=== PATIENT | male | born 1955 | race Caucasian/White ===

== ENCOUNTER 2018-11-30 19:21 | Emergency (ER) | payer MEDICARE, OTHER ==
[~2018-11-30] VITALS: Ht 190.5 cm; Wt 153.8 kg
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
[2018-11-30] MEDS ORDERED: METOCLOPRAMIDE HCL 10 MG/2 ML VIAL IV ONE (20:00)
[2018-11-30] MEDS ORDERED: IV NS 0.9% 500 ML BAG IV ONE (20:00)
[2018-11-30] MEDS ORDERED: METOCLOPRAMIDE HCL 10 MG/2 ML VIAL ONE (20:00)
[2018-11-30] MEDS ORDERED: diphenhydrAMINE HCL 50 MG/ML VIAL ONE (20:00)
[2018-11-30] MEDS ORDERED: diphenhydrAMINE HCL 50 MG/ML VIAL IV ONE (20:00)
[2018-11-30 20:04] LABS: BASOPHILS % (AUTO) 0.3 % (0.0-2.0); EOSINOPHILS % (AUTO) 0.3 % (0.0-6.0); HEMATOCRIT 41 % (39-51); HEMOGLOBIN 13.4 g/dL (13.5-17.5); MEAN CORPUSCULAR HGB CONC 33 g/dl (31.0-36.0); MEAN CORPUSCULAR VOLUME 82 fL (80-96); MONOCYTES # (AUTO) 0.4 /CMM (0.1-1.30); MONOCYTES % (AUTO) 5.5 % (2.0-12.0); NEUTROPHILS # (AUTO) 5.5 /CMM (1.8-8.9); NEUTROPHILS % (AUTO) 79.9 % (43.0-81.0); PLATELET COUNT (AUTO) 158 /CMM (150-450); RED BLOOD CELL COUNT(AUTO) 5.05 MIL/uL (4.5-6.0); WHITE BLOOD COUNT (AUTO) 6.9 K/uL (4.3-11.0)
[2018-11-30 20:12] LABS: CALCIUM, SERUM 8.7 mg/dL (8.5-10.1); CARBON DIOXIDE 29 mmol/L (21-32); CHLORIDE 103 mmol/L (98-107); CREATININE 1.2 mg/dL (0.6-1.3); GLUCOSE 147 mg/dL (74-106); POTASSIUM 4.8 mmol/L (3.5-5.1); SODIUM SERUM 138 mmol/L (136-145); UREA NITROGEN, BLOOD 21 mg/dL (7-18)
[2018-11-30] MEDS ORDERED: HYDROMORPHONE 1 MG/1 ML DISP.SYRIN ONE (21:00)
[2018-11-30] MEDS ORDERED: HYDROMORPHONE 1 MG/1 ML DISP.SYRIN IV PRN (21:00)
[2018-11-30 22:10] VITALS: BP 138/91
== END 2018-11-30 22:10 | disposition left against medical advice (07) ==
LOC: ER 19:26 → TELE 20:47 → UNDOADMIN 20:47 → ER 22:10
DX: R55 Syncope and collapse (principal); R51 Headache; I10 Essential (primary) hypertension; E11.9 Type 2 diabetes mellitus without complications; F41.9 Anxiety disorder, unspecified
CPT/HCPCS: 36415; 70450; 71045; 80048; 84484; 85025; 87081; 93005; 96361; 96374; 96375; 99284; A4606; J1170; J1200; J2765; J7040

== ENCOUNTER 2023-04-23 13:05 | Emergency (ER) | payer MEDICARE, OTHER ==
[~2023-04-23] VITALS: Ht 177.8 cm; Wt 127.0 kg
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
--- NOTE | 2023-04-23 13:30 | NUR ---
pt to ct scan via [facility]
--- NOTE | 2023-04-23 13:48 | NUR ---
PT BACK FROM CT SCAN VIA [facility]
--- NOTE | 2023-04-23 13:50 | NUR ---
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
--- NOTE | 2023-04-23 14:02 | NUR ---
AT BEDSIDE CLAIMS, PT HAS DEMENTIA, DM, HPN.
[2023-04-23 14:07] LABS: BASOPHILS % (AUTO) 0.2 % (0.0-2.0); EOSINOPHILS % (AUTO) 0.7 % (0.0-6.0); HEMATOCRIT 45 % (39-51); HEMOGLOBIN 14.3 g/dL (13.5-17.5); LYMPHOCYTES # (AUTO) 0.9 K/uL (0.8-4.8); MEAN CORPUSCULAR HGB CONC 32 g/dl (31.0-36.0); MEAN CORPUSCULAR VOLUME 84 fL (80-96); MONOCYTES # (AUTO) 0.4 K/uL (0.1-1.30); MONOCYTES % (AUTO) 5.8 % (2.0-12.0); NEUTROPHILS # (AUTO) 5.8 K/uL (1.8-8.9); NEUTROPHILS % (AUTO) 81.3 % (43.0-81.0); PLATELET COUNT (AUTO) 136 K/uL (150-450); RED BLOOD CELL COUNT(AUTO) 5.29 MIL/uL (4.5-6.0); WHITE BLOOD COUNT (AUTO) 7.2 K/uL (4.3-11.0)
--- NOTE | 2023-04-23 14:25 | NUR ---
EMT AT BEDSIDE INTERVIEWING PT, FOR POLICE NOTIFICATION
[2023-04-23 14:58] LABS: CALCIUM, SERUM 9.6 mg/dL (8.5-10.1); CREATININE 1.2 mg/dL (0.6-1.3); POTASSIUM 4.4 mmol/L (3.5-5.1)
--- NOTE | 2023-04-23 16:27 | NUR ---
Patient discharged to home in stable condition. Written and verbal after care instructions given. Patient verbalizes understanding of instruction.
[2023-04-23 16:28] VITALS: BP 140/86; TEMP 98; O2SAT 100
== END 2023-04-23 16:28 | disposition home or self-care (01) ==
LOC: ER 13:11
DX: S00.03XA Contusion of scalp, initial encounter (principal); I10 Essential (primary) hypertension; E11.9 Type 2 diabetes mellitus without complications; F41.9 Anxiety disorder, unspecified; Y08.89XA Assault by other specified means, initial encounter; Y93.89 Activity, other specified; Y92.89 Other specified places as the place of occurrence of the external cause; Y99.8 Other external cause status
CPT/HCPCS: 36415; 70450-TC; 80048-TC; 85025-TC

== ENCOUNTER 2023-09-07 14:40 | Inpatient (IN) | payer MEDICARE, OTHER ==
[~2023-09-07] VITALS: Ht 185.4 cm; Wt 129.7 kg
[2023-09-07 15:23] LABS: BASOPHILS % (AUTO) 0.3 % (0.0-2.0); EOSINOPHILS % (AUTO) 0.9 % (0.0-6.0); HEMATOCRIT 45 % (39-51); HEMOGLOBIN 14.6 g/dL (13.5-17.5); LYMPHOCYTES # (AUTO) 1.1 K/uL (0.8-4.8); LYMPHOCYTES % (AUTO) 19.5 % (20.0-44.0); MEAN CORPUSCULAR HEMOGLOBIN 28 PG (26.0-33.0); MEAN CORPUSCULAR HGB CONC 33 g/dl (31.0-36.0); MEAN CORPUSCULAR VOLUME 86 fL (80-96); MONOCYTES # (AUTO) 0.4 K/uL (0.1-1.30); MONOCYTES % (AUTO) 6.6 % (2.0-12.0); NEUTROPHILS # (AUTO) 4.1 K/uL (1.8-8.9); NEUTROPHILS % (AUTO) 72.7 % (43.0-81.0); PLATELET COUNT (AUTO) 126 K/uL (150-450); RED BLOOD CELL COUNT(AUTO) 5.18 MIL/uL (4.5-6.0); RED CELL DISTRIBUTION WIDTH 16.4 % (11.5-15.0); WHITE BLOOD COUNT (AUTO) 5.6 K/uL (4.3-11.0)
[2023-09-07 15:33] LABS: CALCIUM, SERUM 8.9 mg/dL (8.5-10.1); CARBON DIOXIDE 29 mmol/L (21-32); CHLORIDE 104 mmol/L (98-107); CREATININE 1.1 mg/dL (0.6-1.3); GLUCOSE 119 mg/dL (74-106); POTASSIUM 4.7 mmol/L (3.5-5.1); SODIUM SERUM 139 mmol/L (136-145); UREA NITROGEN, BLOOD 24 mg/dL (7-18)
[2023-09-07 15:39] LABS: ALANINE AMINOTRANSFERASE 22 U/L (12-78); ALBUMIN 3.6 g/dL (3.4-5.0); ALKALINE PHOSPHATASE 86 U/L (46-116); ASPARTATE AMINOTRANSFERASE 13 U/L (15-37); BILIRUBIN,DIRECT 0.2 mg/dL (0.0-0.2); BILIRUBIN,TOTAL 0.8 mg/dL (0.2-1.0); TOTAL PROTEIN, SERUM 7.8 g/dL (6.4-8.2)
[2023-09-07 15:47] LABS: ACETAMINOPHEN <10 ug/ml (10-30); ALCOHOL, BLOOD < 3 mg/dL (0-10); SALICYLATE < 0.2 mg/dL (2.8-20.0)
[2023-09-07] MEDS ORDERED: CYAN100T44 PO (17:32)
[2023-09-07] MEDS ORDERED: METF-440 PO (17:32)
[2023-09-07] MEDS ORDERED: DIVA125C5 PO (17:32)
[2023-09-07] MEDS ORDERED: MEMA28CA5 PO (17:32)
[2023-09-07] MEDS ORDERED: FURO-144 PO (17:32)
[2023-09-07] MEDS ORDERED: SITA100T PO (17:32)
[2023-09-07] MEDS ORDERED: CHOL100043 PO (17:32)
[2023-09-07] MEDS ORDERED: POTA10TA10 PO (17:32)
[2023-09-07] MEDS ORDERED: TRINTELLIX PO (17:32)
[2023-09-07] MEDS ORDERED: ICOS1CAP PO (17:32)
[2023-09-07] MEDS ORDERED: LANS30CA56 PO (17:32)
[2023-09-07] MEDS ORDERED: ROSU40TA PO (17:32)
[2023-09-07] MEDS ORDERED: TOPI25TA49 PO (17:32)
[2023-09-07] MEDS ORDERED: BENA20TA9 PO (17:32)
[2023-09-07] MEDS ORDERED: MAGN400T26 PO (17:32)
[2023-09-07] MEDS ORDERED: CARV25TA2 PO (17:32)
[2023-09-07] MEDS ORDERED: QUET50TA PO (17:32)
[2023-09-07] MEDS ORDERED: QUET100T PO (17:32)
[2023-09-07] MEDS ORDERED: TOPIRAMATE 25 MG TABLET PO ONE ×2 (20:00)
[2023-09-07] MEDS ORDERED: QUETIAPINE FUMARATE 100 MG TABLET PO SCH (20:00)
[2023-09-07] MEDS ORDERED: DIVALPROEX SODIUM 250 MG TABLET.DR PO ONE (20:00)
[2023-09-07] MEDS ORDERED: MEMANTINE HCL 5 MG TABLET PO ONE (20:00)
[2023-09-07] MEDS ORDERED: QUETIAPINE FUMARATE 100 MG TABLET PO ONE (20:00)
[2023-09-07] MEDS ORDERED: QUETIAPINE FUMARATE 25 MG TABLET ONE (20:16)
[2023-09-07] MEDS ORDERED: DIVALPROEX SODIUM 500 MG TABLET.DR PO ONE (20:17)
[2023-09-07] MEDS ORDERED: DIVALPROEX SODIUM 125 MG TABLET.DR PO ONE (21:30)
[2023-09-07 22:40] VITALS: BP 140/90; TEMP 98; O2SAT 96
[2023-09-07] MEDS: LORAZEPAM 0.5 MG TABLET PO PRN (22:48)
[2023-09-07] MEDS ORDERED: MAGNESIUM HYDROXIDE 30 ML UDC PO PRN (23:00)
[2023-09-07] MEDS ORDERED: ACETAMINOPHEN 325 MG TABLET PO PRN (23:00)
[2023-09-07] MEDS ORDERED: BLOOD SUGAR DIAGNOSTIC 1 EACH STRIP IN ONE (23:00)
[2023-09-07] MEDS ORDERED: MAG HYDROX/AL HYDROX/SIMETH 30 ML UDC PO PRN (23:00)
[2023-09-08] MEDS ORDERED: OLANZAPINE 10 MG VIAL IM ONE ×2 (00:30→09:30)
[2023-09-08 08:00] VITALS: BP 100/64; TEMP 97.9; O2SAT 98
[2023-09-08] MEDS: LORAZEPAM 0.5 MG TABLET PO PRN (08:14)
[2023-09-08] MEDS ORDERED: LORAZEPAM INJ 2 MG/ML VIAL IM ONE (09:30)
[2023-09-08] MEDS: OLANZAPINE 5 MG TABLET PO SCH ×2 (11:30→16:13)
[2023-09-08] MEDS: DIVALPROEX SODIUM 125 MG TABLET.DR PO SCH ×2 (13:00→16:13)
[2023-09-08] MEDS: LORAZEPAM 1 MG TABLET PO PRN (15:33)
[2023-09-08 16:00] VITALS: BP 100/69; TEMP 98.1; O2SAT 98
[2023-09-08] MEDS ORDERED: MAGNESIUM OXIDE 400 MG TABLET PO PRN (23:00)
[2023-09-08] MEDS ORDERED: POTASSIUM CHLORIDE 10 MEQ TABLET.SA PO PRN (23:00)
[2023-09-08] MEDS ORDERED: FUROSEMIDE 40 MG TABLET PO PRN (23:00)
[2023-09-09] MEDS: LORAZEPAM 1 MG TABLET PO PRN ×2 (07:51→15:30)
[2023-09-09 08:00] VITALS: BP 158/100; TEMP 97.8; O2SAT 99
[2023-09-09] MEDS: PANTOPRAZOLE 40 MG TABLET.DR PO SCH (08:23)
[2023-09-09] MEDS: DIVALPROEX SODIUM 125 MG TABLET.DR PO SCH ×3 (08:58→16:42)
[2023-09-09] MEDS: OLANZAPINE 5 MG TABLET PO SCH ×2 (08:58→16:41)
[2023-09-09] MEDS ORDERED: Medication Not On Formulary EA (Icosapent Ethyl (Vascepa) 2 GM) PO SCH (09:00)
[2023-09-09] MEDS: CHOLECALCIFEROL 1,000 UNIT TABLET (VIT D3) PO SCH (09:01)
[2023-09-09] MEDS: LINAGLIPTIN 5 MG TABLET PO SCH (09:01)
[2023-09-09] MEDS: MEMANTINE HCL 5 MG TABLET PO SCH ×2 (09:01→21:24)
[2023-09-09] MEDS: CYANOCOBALAMIN 100 MCG TABLET PO SCH (09:02)
[2023-09-09] MEDS: CARVEDILOL 12.5 MG TABLET PO SCH ×2 (09:02→21:00)
[2023-09-09] MEDS ORDERED: LORAZEPAM INJ 2 MG/ML VIAL IM ONE (12:00)
[2023-09-09] MEDS: BENAZEPRIL HCL 20 MG TABLET PO SCH (12:00)
[2023-09-09] MEDS ORDERED: OLANZAPINE 10 MG VIAL IM ONE (12:00)
[2023-09-09] MEDS: METFORMIN 500 MG TABLET PO SCH (16:43)
[2023-09-09] MEDS: ATORVASTATIN 40 MG TABLET PO SCH (21:24)
[2023-09-09] MEDS: TEMAZEPAM 7.5 MG CAPSULE PO PRN (21:28)
[2023-09-10] MEDS: LORAZEPAM 1 MG TABLET PO PRN ×2 (03:59→16:42)
[2023-09-10 08:00] VITALS: BP 137/70; TEMP 98; O2SAT 100
[2023-09-10] MEDS: DIVALPROEX SODIUM 125 MG TABLET.DR PO SCH (08:05)
[2023-09-10] MEDS: BENAZEPRIL HCL 20 MG TABLET PO SCH (08:06)
[2023-09-10] MEDS: PANTOPRAZOLE 40 MG TABLET.DR PO SCH (08:06)
[2023-09-10] MEDS: MEMANTINE HCL 5 MG TABLET PO SCH ×2 (08:06→20:53)
[2023-09-10] MEDS: METFORMIN 500 MG TABLET PO SCH ×2 (08:06→16:42)
[2023-09-10] MEDS: CARVEDILOL 12.5 MG TABLET PO SCH ×2 (08:06→20:53)
[2023-09-10] MEDS: LINAGLIPTIN 5 MG TABLET PO SCH (08:06)
[2023-09-10] MEDS: CHOLECALCIFEROL 1,000 UNIT TABLET (VIT D3) PO SCH (08:07)
[2023-09-10] MEDS: CYANOCOBALAMIN 100 MCG TABLET PO SCH (08:07)
[2023-09-10] MEDS: OLANZAPINE 5 MG TABLET PO SCH ×2 (08:07→16:42)
[2023-09-10] MEDS: DIVALPROEX SODIUM 500 MG TABLET.DR PO SCH ×2 (13:00→16:42)
[2023-09-10 16:00] VITALS: BP 103/64; TEMP 98; O2SAT 100
[2023-09-10] MEDS: ATORVASTATIN 40 MG TABLET PO SCH (22:00)
[2023-09-11] MEDS: PANTOPRAZOLE 40 MG TABLET.DR PO SCH ×2 (07:30→09:03)
[2023-09-11 08:00] VITALS: BP 127/74; TEMP 98; O2SAT 100
[2023-09-11] MEDS: MEMANTINE HCL 5 MG TABLET PO SCH ×3 (09:00→20:50)
[2023-09-11] MEDS: CARVEDILOL 12.5 MG TABLET PO SCH ×3 (09:00→20:47)
[2023-09-11] MEDS: METFORMIN 500 MG TABLET PO SCH ×3 (09:00→16:22)
[2023-09-11] MEDS: CHOLECALCIFEROL 1,000 UNIT TABLET (VIT D3) PO SCH ×2 (09:00→09:03)
[2023-09-11] MEDS: CYANOCOBALAMIN 100 MCG TABLET PO SCH ×2 (09:00→09:07)
[2023-09-11] MEDS: DIVALPROEX SODIUM 500 MG TABLET.DR PO SCH ×4 (09:00→16:22)
[2023-09-11] MEDS: BENAZEPRIL HCL 20 MG TABLET PO SCH ×2 (09:00→09:04)
[2023-09-11] MEDS: LINAGLIPTIN 5 MG TABLET PO SCH ×2 (09:00→09:03)
[2023-09-11] MEDS: OLANZAPINE 5 MG TABLET PO SCH ×3 (09:00→16:22)
[2023-09-11] MEDS: LORAZEPAM 1 MG TABLET PO PRN ×3 (09:02→20:45)
[2023-09-11] MEDS ORDERED: OLANZAPINE 10 MG TABLET PO ONE (13:00)
[2023-09-11 16:00] VITALS: BP 129/71; TEMP 97.6; O2SAT 100
[2023-09-11] MEDS: ATORVASTATIN 40 MG TABLET PO SCH (21:29)
[2023-09-12] MEDS: LORAZEPAM 1 MG TABLET PO PRN ×3 (02:17→23:05)
[2023-09-12] MEDS: TEMAZEPAM 7.5 MG CAPSULE PO PRN ×2 (02:39→21:08)
[2023-09-12 08:00] VITALS: BP 120/58; TEMP 97.9; O2SAT 98
[2023-09-12] MEDS: LINAGLIPTIN 5 MG TABLET PO SCH (08:10)
[2023-09-12] MEDS: CHOLECALCIFEROL 1,000 UNIT TABLET (VIT D3) PO SCH (08:10)
[2023-09-12] MEDS: METFORMIN 500 MG TABLET PO SCH ×2 (08:11→16:56)
[2023-09-12] MEDS: CYANOCOBALAMIN 100 MCG TABLET PO SCH (08:11)
[2023-09-12] MEDS: DIVALPROEX SODIUM 500 MG TABLET.DR PO SCH ×3 (08:11→16:56)
[2023-09-12] MEDS: PANTOPRAZOLE 40 MG TABLET.DR PO SCH (08:11)
[2023-09-12] MEDS: OLANZAPINE 5 MG TABLET PO SCH (08:11)
[2023-09-12] MEDS: CARVEDILOL 12.5 MG TABLET PO SCH ×2 (08:11→21:07)
[2023-09-12] MEDS: MEMANTINE HCL 5 MG TABLET PO SCH ×2 (08:13→21:05)
[2023-09-12] MEDS: BENAZEPRIL HCL 20 MG TABLET PO SCH (08:13)
[2023-09-12] MEDS ORDERED: risperiDONE 1 MG TABLET PO SCH (13:00)
[2023-09-12] MEDS: ATORVASTATIN 40 MG TABLET PO SCH (21:05)
[2023-09-12 21:41] VITALS: BP 124/84; TEMP 98.2; O2SAT 99
[2023-09-12] MEDS ORDERED: OLANZAPINE 5 MG TABLET PO SCH (22:00)
[2023-09-13 07:47] LABS: BASOPHILS % (AUTO) 0.1 % (0.0-2.0); EOSINOPHILS # (AUTO) 0.1 K/uL (0.0-0.7); EOSINOPHILS % (AUTO) 0.5 % (0.0-6.0); HEMATOCRIT 44 % (39-51); HEMOGLOBIN 14.3 g/dL (13.5-17.5); LYMPHOCYTES # (AUTO) 1.4 K/uL (0.8-4.8); LYMPHOCYTES % (AUTO) 13.2 % (20.0-44.0); MEAN CORPUSCULAR HEMOGLOBIN 29 PG (26.0-33.0); MEAN CORPUSCULAR HGB CONC 33 g/dl (31.0-36.0); MEAN CORPUSCULAR VOLUME 87 fL (80-96); MONOCYTES # (AUTO) 0.9 K/uL (0.1-1.30); MONOCYTES % (AUTO) 8.8 % (2.0-12.0); NEUTROPHILS # (AUTO) 8.3 K/uL (1.8-8.9); NEUTROPHILS % (AUTO) 77.4 % (43.0-81.0); PLATELET COUNT (AUTO) 145 K/uL (150-450); RED BLOOD CELL COUNT(AUTO) 5.02 MIL/uL (4.5-6.0); RED CELL DISTRIBUTION WIDTH 16.8 % (11.5-15.0); WHITE BLOOD COUNT (AUTO) 10.8 K/uL (4.3-11.0)
[2023-09-13] MEDS: PANTOPRAZOLE 40 MG TABLET.DR PO SCH (07:54)
[2023-09-13] MEDS: LORAZEPAM 1 MG TABLET PO PRN ×2 (07:55→18:44)
[2023-09-13 08:00] VITALS: BP 116/73; TEMP 98.6; O2SAT 99
[2023-09-13] MEDS: METFORMIN 500 MG TABLET PO SCH ×2 (08:08→17:00)
[2023-09-13] MEDS: CYANOCOBALAMIN 100 MCG TABLET PO SCH (08:08)
[2023-09-13] MEDS: BENAZEPRIL HCL 20 MG TABLET PO SCH (08:09)
[2023-09-13] MEDS: LINAGLIPTIN 5 MG TABLET PO SCH (08:09)
[2023-09-13] MEDS: CHOLECALCIFEROL 1,000 UNIT TABLET (VIT D3) PO SCH (08:09)
[2023-09-13] MEDS: OLANZAPINE 5 MG TABLET PO SCH ×2 (08:09→09:00)
[2023-09-13] MEDS: DIVALPROEX SODIUM 500 MG TABLET.DR PO SCH ×3 (08:10→17:00)
[2023-09-13] MEDS: CARVEDILOL 12.5 MG TABLET PO SCH (08:11)
[2023-09-13 08:26] LABS: ALBUMIN 3.9 g/dL (3.4-5.0); BILIRUBIN,TOTAL 1.7 mg/dL (0.2-1.0); CALCIUM, SERUM 9.1 mg/dL (8.5-10.1); CREATININE 1.5 mg/dL (0.6-1.3); POTASSIUM 4.2 mmol/L (3.5-5.1); TOTAL PROTEIN, SERUM 8.5 g/dL (6.4-8.2)
[2023-09-13] MEDS: MEMANTINE HCL 5 MG TABLET PO SCH (08:51)
[2023-09-13] MEDS ORDERED: OLANZAPINE 10 MG VIAL IM ONE (10:00)
[2023-09-13] MEDS ORDERED: OLANZAPINE ZYDIS 5 MG TAB.RAPDIS SL ONE (10:00)
[2023-09-13] MEDS: risperiDONE 1 MG TABLET PO SCH ×2 (13:00→17:00)
[2023-09-13 16:00] VITALS: BP 109/72; TEMP 97.9; O2SAT 98
[2023-09-13] MEDS ORDERED: OLAN5TAB3 PO (19:09)
[2023-09-13] MEDS ORDERED: OLAN15TA3 PO (19:09)
[2023-09-13] MEDS ORDERED: ATOR80TA PO (19:09)
[2023-09-13] MEDS ORDERED: TEMA7.5C12 PO (19:09)
[2023-09-13] MEDS ORDERED: DIVA-78 PO (19:09)
[2023-09-13] MEDS ORDERED: LORA-259 PO (19:09)
[2023-09-13] MEDS ORDERED: PANT40TA2 PO (19:09)
[2023-09-13] MEDS ORDERED: MAGN400O6 PO (19:09)
[2023-09-13] MEDS ORDERED: RISP1TAB97 PO (19:09)
[2023-09-13] MEDS ORDERED: MAG30ORA PO (19:09)
[2023-09-13] MEDS ORDERED: LINA5TAB PO (19:09)
[2023-09-13] MEDS ORDERED: MEMA10TA PO (19:09)
[2023-09-13] MEDS ORDERED: ACET-868 PO (19:09)
[2023-09-13] MEDS ORDERED: OLANZAPINE 5 MG TABLET PO SCH (22:00)
[2023-09-14] MEDS ORDERED: OLANZAPINE 5 MG TABLET PO SCH (09:00)
== END 2023-09-13 20:22 | disposition short-term general hospital (02) | DRG 885 ==
LOC: ER 14:49 → GPS 21:00
PROVIDERS: ADMIT Psychiatry & Neurology Psychosomatic Medicine; ATTEND Nurse Practitioner Acute Care
DX: F29 Unspecified psychosis not due to a substance or known physiological condition (principal); I11.0 Hypertensive heart disease with heart failure; N19 Unspecified kidney failure; F03.918 Unspecified dementia, unspecified severity, with other behavioral disturbance; F03.93 Unspecified dementia, unspecified severity, with mood disturbance; E11.9 Type 2 diabetes mellitus without complications; F41.9 Anxiety disorder, unspecified; E66.9 Obesity, unspecified; E78.5 Hyperlipidemia, unspecified; E86.0 Dehydration; F43.10 Post-traumatic stress disorder, unspecified; I50.9 Heart failure, unspecified; J44.9 Chronic obstructive pulmonary disease, unspecified; K21.9 Gastro-esophageal reflux disease without esophagitis; Z79.84 Long term (current) use of oral hypoglycemic drugs; Z87.820 Personal history of traumatic brain injury; Z91.199 Patient's noncompliance with other medical treatment and regimen due to unspecified reason; Z68.37 Body mass index [BMI] 37.0-37.9, adult; F39 Unspecified mood [affective] disorder; Z73.6 Limitation of activities due to disability; Z79.899 Other long term (current) drug therapy; Z20.822 Contact with and (suspected) exposure to COVID-19
CPT/HCPCS: 36415; 71045-TC; 80048-TC; 80053-TC; 80076-TC; 80164-TC; 82962-TC; 85025-TC; C9803; G0480; J2060; J3490

== ENCOUNTER 2023-09-13 18:49 | Inpatient (IN) | payer MEDICARE, OTHER ==
[~2023-09-13] VITALS: Ht 185.4 cm; Wt 129.7 kg
[~2023-09-13 18:49] MED LIST: BENA20TA9 PO; CARV25TA2 PO; CHOL100043 PO; CYAN100T44 PO; FURO-144 PO; ICOS1CAP PO; LANS30CA56 PO; MAGN400T26 PO; MEMA28CA5 PO; METF-440 PO; POTA10TA10 PO; ROSU40TA PO; SITA100T PO; TRINTELLIX PO
[2023-09-13] MEDS ORDERED: PANT40TA2 PO (19:09)
[2023-09-13] MEDS ORDERED: ATOR80TA PO (19:09)
[2023-09-13] MEDS ORDERED: MEMA10TA PO (19:09)
[2023-09-13] MEDS ORDERED: LINA5TAB PO (19:09)
[2023-09-13] MEDS ORDERED: ACET-868 PO (19:09)
[2023-09-13] MEDS ORDERED: OLAN5TAB3 PO (19:09)
[2023-09-13] MEDS ORDERED: MAGN400O6 PO (19:09)
[2023-09-13] MEDS ORDERED: TEMA7.5C12 PO (19:09)
[2023-09-13] MEDS ORDERED: OLAN15TA3 PO (19:09)
[2023-09-13] MEDS ORDERED: DIVA-78 PO (19:09)
[2023-09-13] MEDS ORDERED: RISP1TAB97 PO (19:09)
[2023-09-13] MEDS ORDERED: MAG30ORA PO (19:09)
[2023-09-13] MEDS ORDERED: LORA-259 PO (19:09)
[2023-09-13 20:15] VITALS: BP 110/59; TEMP 98.4; O2SAT 98
[2023-09-13] MEDS ORDERED: IV NS 0.9% 1,000 ML IV PRN ×2 (21:30→22:30)
[2023-09-13] MEDS ORDERED: MAGNESIUM OXIDE 400 MG TABLET PO PRN (22:30)
[2023-09-13] MEDS ORDERED: ACETAMINOPHEN 325 MG TABLET PO PRN (22:30)
[2023-09-13] MEDS ORDERED: DEXTROSE 50%-WATER 50 ML DISP.SYRIN IV PRN (22:30)
[2023-09-13] MEDS ORDERED: MAG HYDROX/AL HYDROX/SIMETH 30 ML UDC PO PRN (22:30)
[2023-09-13] MEDS ORDERED: INSULIN REGULAR, HUMAN 100 UNIT/ML 3 ML VIAL SQ PRN (22:30)
[2023-09-13] MEDS ORDERED: ONDANSETRON HCL/PF 4 MG/2 ML VIAL IVP PRN (22:30)
[2023-09-13] MEDS: ATORVASTATIN 40 MG TABLET PO SCH (22:42)
[2023-09-13] MEDS: CARVEDILOL 12.5 MG TABLET PO SCH (22:43)
[2023-09-13] MEDS: MEMANTINE HCL 5 MG TABLET PO SCH (22:44)
[2023-09-13] MEDS: OLANZAPINE 10 MG TABLET PO SCH (22:45)
[2023-09-13] MEDS: LORAZEPAM 1 MG TABLET PO PRN (23:48)
[2023-09-14] MEDS: TEMAZEPAM 7.5 MG CAPSULE PO PRN ×2 (01:03→01:04)
[2023-09-14] MEDS: BLOOD SUGAR DIAGNOSTIC 1 EACH STRIP IN SCH ×4 (07:57→22:57)
[2023-09-14 08:00] VITALS: BP 128/90; TEMP 98; O2SAT 99
[2023-09-14 08:29] LABS: BASOPHILS % (AUTO) 0.2 % (0.0-2.0); EOSINOPHILS # (AUTO) 0.1 K/uL (0.0-0.7); EOSINOPHILS % (AUTO) 0.8 % (0.0-6.0); HEMATOCRIT 40 % (39-51); LYMPHOCYTES # (AUTO) 1.4 K/uL (0.8-4.8); LYMPHOCYTES % (AUTO) 20.9 % (20.0-44.0); MEAN CORPUSCULAR HEMOGLOBIN 28 PG (26.0-33.0); MEAN CORPUSCULAR HGB CONC 33 g/dl (31.0-36.0); MEAN CORPUSCULAR VOLUME 86 fL (80-96); MONOCYTES # (AUTO) 0.7 K/uL (0.1-1.30); MONOCYTES % (AUTO) 10.4 % (2.0-12.0); NEUTROPHILS # (AUTO) 4.5 K/uL (1.8-8.9); NEUTROPHILS % (AUTO) 67.7 % (43.0-81.0); PLATELET COUNT (AUTO) 130 K/uL (150-450); RED BLOOD CELL COUNT(AUTO) 4.62 MIL/uL (4.5-6.0); RED CELL DISTRIBUTION WIDTH 16.6 % (11.5-15.0); WHITE BLOOD COUNT (AUTO) 6.6 K/uL (4.3-11.0)
[2023-09-14 08:43] LABS: CALCIUM, SERUM 9.2 mg/dL (8.5-10.1); CREATININE 1.1 mg/dL (0.6-1.3); PHOSPHORUS 2.8 mg/dL (2.5-4.9); POTASSIUM 3.6 mmol/L (3.5-5.1)
[2023-09-14] MEDS: PANTOPRAZOLE 40 MG TABLET.DR PO SCH (08:54)
[2023-09-14] MEDS: CYANOCOBALAMIN 100 MCG TABLET PO SCH (08:55)
[2023-09-14] MEDS: CARVEDILOL 12.5 MG TABLET PO SCH ×2 (08:55→23:30)
[2023-09-14] MEDS: DIVALPROEX SODIUM 500 MG TABLET.DR PO SCH ×3 (08:55→16:29)
[2023-09-14] MEDS: LINAGLIPTIN 5 MG TABLET PO SCH (08:55)
[2023-09-14] MEDS: risperiDONE 1 MG TABLET PO SCH ×3 (08:55→16:28)
[2023-09-14] MEDS: MEMANTINE HCL 5 MG TABLET PO SCH ×2 (08:55→22:39)
[2023-09-14] MEDS: OLANZAPINE 5 MG TABLET PO SCH ×2 (08:55→16:29)
[2023-09-14] MEDS: CHOLECALCIFEROL (VITAMIN D 3) 400 UNIT TABLET PO SCH (08:55)
[2023-09-14] MEDS: BENAZEPRIL HCL 20 MG TABLET PO SCH (08:56)
[2023-09-14] MEDS: LORAZEPAM 1 MG TABLET PO PRN (10:20)
[2023-09-14] MEDS ORDERED: OLANZAPINE 10 MG VIAL IM STA ×2 (10:51→17:15)
[2023-09-14] MEDS ORDERED: LORAZEPAM 1 MG TABLET PO PRN (15:00)
[2023-09-14 16:00] VITALS: BP 100/67; TEMP 98.6; O2SAT 99
[2023-09-14] MEDS: ATORVASTATIN 40 MG TABLET PO SCH (22:39)
[2023-09-14] MEDS: OLANZAPINE 10 MG TABLET PO SCH (22:39)
[2023-09-15] MEDS ORDERED: OLANZAPINE 10 MG VIAL IM ONE (07:00)
[2023-09-15] MEDS: BLOOD SUGAR DIAGNOSTIC 1 EACH STRIP IN SCH ×4 (07:30→17:56)
[2023-09-15] MEDS: OLANZAPINE 5 MG TABLET PO SCH (08:13)
[2023-09-15] MEDS: risperiDONE 1 MG TABLET PO SCH (08:15)
[2023-09-15] MEDS: CHOLECALCIFEROL (VITAMIN D 3) 400 UNIT TABLET PO SCH (08:15)
[2023-09-15] MEDS: PANTOPRAZOLE 40 MG TABLET.DR PO SCH (08:15)
[2023-09-15] MEDS: MEMANTINE HCL 5 MG TABLET PO SCH (08:16)
[2023-09-15] MEDS: DIVALPROEX SODIUM 500 MG TABLET.DR PO SCH (08:17)
[2023-09-15] MEDS: CYANOCOBALAMIN 100 MCG TABLET PO SCH (08:17)
[2023-09-15] MEDS: LINAGLIPTIN 5 MG TABLET PO SCH (08:20)
[2023-09-15] MEDS: CARVEDILOL 12.5 MG TABLET PO SCH (08:24)
[2023-09-15 08:25] VITALS: BP 153/84
[2023-09-15] MEDS: BENAZEPRIL HCL 20 MG TABLET PO SCH (08:25)
[2023-09-15] MEDS: DIVALPROEX SODIUM 125 MG CAP.SPRINK PO SCH ×2 (14:33→16:58)
[2023-09-15] MEDS ORDERED: HALOPERIDOL LACTATE INJ 5 MG/ML VIAL IM STA (16:48)
[2023-09-15] MEDS ORDERED: OLANZAPINE ZYDIS 5 MG TAB.RAPDIS PO SCH ×2 (17:00→22:00)
[2023-09-15] MEDS ORDERED: risperiDONE-M 0.5 MG TAB.RAPDIS PO SCH (17:00)
[2023-09-15 18:26] LABS: CREATININE, URINE 217.3 MG/DL (30.0-125.0); URINE TOTAL PROTEIN 15.8 mg/dL (0-11.9)
[2023-09-15 19:28] LABS: APPEARANCE,URINE SLIGHTLY CLOUDY (CLEAR); BILIRUBIN,URINE NEGATIVE (NEGATIVE); BLOOD, URINE NEGATIVE Ery/uL (NEGATIVE); COLOR,URINE YELLOW (YELLOW); KETONES,URINE NEGATIVE (NEGATIVE); LEUKOCYTE ESTERASE ,URINE NEGATIVE (NEGATIVE); NITRITE, URINE NEGATIVE (NEGATIVE); PROTEIN,URINE NEGATIVE (NEGATIVE); UGLUCOSE NEGATIVE (NEGATIVE)
[2023-09-15 21:26] LABS: EOSINOPHIL,URINE None Seen
[2023-09-15 22:29] LABS: ADD URINE CULTURE NO; BACTERIA,URINE None seen /HPF (None Seen); RBC,URINE 0-2 /HPF (0-2); SQUAMOUS EPITHELIAL CELL,UR 0-2 /HPF (None Seen); WBC,URINE 0-2 /HPF (0-3)
[2023-09-16] MEDS ORDERED: CHOL400T PO (16:59)
[2023-09-16] MEDS ORDERED: INSU100V3 SQ (16:59)
== END 2023-09-15 19:00 | DRG 640 ==
LOC: MED 18:49
PROVIDERS: ADMIT Nurse Practitioner Acute Care; ATTEND Internal Medicine
DX: E86.0 Dehydration (principal); N17.0 Acute kidney failure with tubular necrosis; I50.32 Chronic diastolic (congestive) heart failure; F03.918 Unspecified dementia, unspecified severity, with other behavioral disturbance; F03.92 Unspecified dementia, unspecified severity, with psychotic disturbance; I11.0 Hypertensive heart disease with heart failure; D64.9 Anemia, unspecified; E11.9 Type 2 diabetes mellitus without complications; E66.9 Obesity, unspecified; E78.5 Hyperlipidemia, unspecified; F43.10 Post-traumatic stress disorder, unspecified; J44.9 Chronic obstructive pulmonary disease, unspecified; Z79.4 Long term (current) use of insulin; Z87.820 Personal history of traumatic brain injury; F29 Unspecified psychosis not due to a substance or known physiological condition; M89.8X9 Other specified disorders of bone, unspecified site; Z68.37 Body mass index [BMI] 37.0-37.9, adult
CPT/HCPCS: 36415; 80048-TC; 81001; 82570-TC; 82962-TC; 83735-TC; 84100-TC; 84300-TC; 85025-TC; 87081-TC; 87086-TC; A4223; G0378; J1630; J1815; J3490; J7030

== ENCOUNTER 2023-09-15 19:51 | Inpatient (IN) | payer MEDICARE, OTHER ==
[~2023-09-15] VITALS: Ht 185.4 cm; Wt 129.7 kg
[~2023-09-15 19:51] MED LIST changes: +ACET-868 PO; +ATOR80TA PO; +DIVA-78 PO; -FURO-144 PO; -ICOS1CAP PO; -LANS30CA56 PO; +LINA5TAB PO; +LORA-259 PO; +MAG30ORA PO; +MAGN400O6 PO; +MEMA10TA PO; -MEMA28CA5 PO; +OLAN15TA3 PO; +OLAN5TAB3 PO; +PANT40TA2 PO; +RISP1TAB97 PO; -ROSU40TA PO; -SITA100T PO; +TEMA7.5C12 PO; -TRINTELLIX PO
[2023-09-15] MEDS ORDERED: TEMAZEPAM 7.5 MG CAPSULE PO PRN (20:30)
[2023-09-15] MEDS ORDERED: MAGNESIUM HYDROXIDE 30 ML UDC PO PRN (20:30)
[2023-09-15] MEDS ORDERED: MAG HYDROX/AL HYDROX/SIMETH 30 ML UDC PO PRN (20:30)
[2023-09-15] MEDS ORDERED: ACETAMINOPHEN 325 MG TABLET PO PRN (20:30)
[2023-09-15] MEDS ORDERED: DEXTROSE 50%-WATER 50 ML DISP.SYRIN IV PRN (20:30)
[2023-09-15] MEDS ORDERED: RISPERIDONE 0.25 MG TAB.RAPDIS PO SCH (21:00)
[2023-09-15] MEDS: OLANZAPINE ZYDIS 5 MG TAB.RAPDIS PO SCH (21:45)
[2023-09-15] MEDS: BLOOD SUGAR DIAGNOSTIC 1 EACH STRIP IN SCH (22:00)
[2023-09-15] MEDS ORDERED: BLOOD SUGAR DIAGNOSTIC 1 EACH STRIP IN ONE (22:00)
[2023-09-15] MEDS: risperiDONE-M 0.5 MG TAB.RAPDIS PO SCH (22:15)
[2023-09-15] MEDS: ATORVASTATIN 40 MG TABLET PO SCH (22:26)
[2023-09-15] MEDS ORDERED: OLANZAPINE 10 MG VIAL IM ONE (23:00)
[2023-09-16] MEDS: BLOOD SUGAR DIAGNOSTIC 1 EACH STRIP IN SCH ×4 (07:19→22:00)
[2023-09-16] MEDS: PANTOPRAZOLE 40 MG TABLET.DR PO SCH (07:20)
[2023-09-16] MEDS: INSULIN REGULAR, HUMAN 100 UNIT/ML 3 ML VIAL SQ PRN ×2 (07:20→16:57)
[2023-09-16 08:00] VITALS: BP 95/62; TEMP 97.5; O2SAT 97
[2023-09-16] MEDS: DIVALPROEX SODIUM 500 MG TABLET.DR PO SCH ×3 (08:03→16:35)
[2023-09-16] MEDS: LINAGLIPTIN 5 MG TABLET PO SCH (08:03)
[2023-09-16] MEDS: CHOLECALCIFEROL 1,000 UNIT TABLET (VIT D3) PO SCH (08:03)
[2023-09-16] MEDS: CYANOCOBALAMIN 100 MCG TABLET PO SCH (08:03)
[2023-09-16] MEDS: MEMANTINE HCL 5 MG TABLET PO SCH ×2 (08:04→21:00)
[2023-09-16] MEDS: risperiDONE-M 0.5 MG TAB.RAPDIS PO SCH ×3 (08:04→21:00)
[2023-09-16] MEDS: CARVEDILOL 12.5 MG TABLET PO SCH ×2 (08:19→16:45)
[2023-09-16] MEDS: BENAZEPRIL HCL 20 MG TABLET PO SCH (08:20)
[2023-09-16] MEDS ORDERED: OLANZAPINE ZYDIS 5 MG TAB.RAPDIS PO SCH (09:00)
[2023-09-16] MEDS: LORAZEPAM 1 MG TABLET PO PRN ×2 (10:08→14:09)
[2023-09-16] MEDS: LORAZEPAM 0.5 MG TABLET PO SCH ×2 (10:29→18:10)
[2023-09-16] MEDS ORDERED: TEMAZEPAM 7.5 MG CAPSULE PO PRN (10:30)
[2023-09-16 10:56] LABS: BASOPHILS % (AUTO) 0.3 % (0.0-2.0); EOSINOPHILS % (AUTO) 0.6 % (0.0-6.0); HEMATOCRIT 41 % (39-51); HEMOGLOBIN 13.7 g/dL (13.5-17.5); LYMPHOCYTES # (AUTO) 1.4 K/uL (0.8-4.8); LYMPHOCYTES % (AUTO) 18.8 % (20.0-44.0); MEAN CORPUSCULAR HEMOGLOBIN 28 PG (26.0-33.0); MEAN CORPUSCULAR HGB CONC 33 g/dl (31.0-36.0); MEAN CORPUSCULAR VOLUME 86 fL (80-96); MONOCYTES # (AUTO) 0.7 K/uL (0.1-1.30); MONOCYTES % (AUTO) 9.1 % (2.0-12.0); NEUTROPHILS # (AUTO) 5.2 K/uL (1.8-8.9); NEUTROPHILS % (AUTO) 71.2 % (43.0-81.0); PLATELET COUNT (AUTO) 137 K/uL (150-450); RED BLOOD CELL COUNT(AUTO) 4.81 MIL/uL (4.5-6.0); RED CELL DISTRIBUTION WIDTH 16.5 % (11.5-15.0); WHITE BLOOD COUNT (AUTO) 7.3 K/uL (4.3-11.0)
[2023-09-16 11:20] LABS: CALCIUM, SERUM 9.2 mg/dL (8.5-10.1); CREATININE 1.3 mg/dL (0.6-1.3); POTASSIUM 3.8 mmol/L (3.5-5.1)
[2023-09-16 11:26] LABS: ALBUMIN 3.7 g/dL (3.4-5.0); BILIRUBIN,TOTAL 1.1 mg/dL (0.2-1.0); TOTAL PROTEIN, SERUM 8.1 g/dL (6.4-8.2)
[2023-09-16] MEDS: OLANZAPINE ZYDIS 5 MG TAB.RAPDIS PO SCH ×3 (12:13→22:00)
[2023-09-16 16:00] VITALS: BP 93/65; TEMP 97.8; O2SAT 99
[2023-09-16] MEDS ORDERED: INSU100V3 SQ (16:59)
[2023-09-16] MEDS ORDERED: CHOL400T PO (16:59)
[2023-09-16] MEDS ORDERED: OLANZAPINE ZYDIS 5 MG TAB.RAPDIS PO PRN (21:30)
[2023-09-16] MEDS: ATORVASTATIN 40 MG TABLET PO SCH (22:31)
[2023-09-17] MEDS: LORAZEPAM 0.5 MG TABLET PO SCH ×3 (02:30→18:30)
[2023-09-17] MEDS: PANTOPRAZOLE 40 MG TABLET.DR PO SCH (07:30)
[2023-09-17] MEDS: BLOOD SUGAR DIAGNOSTIC 1 EACH STRIP IN SCH ×4 (07:30→21:08)
[2023-09-17 08:00] VITALS: BP 137/76; TEMP 98; O2SAT 98
[2023-09-17] MEDS: risperiDONE-M 0.5 MG TAB.RAPDIS PO SCH ×4 (09:00→21:09)
[2023-09-17] MEDS: DIVALPROEX SODIUM 500 MG TABLET.DR PO SCH ×3 (09:00→17:00)
[2023-09-17] MEDS: OLANZAPINE ZYDIS 5 MG TAB.RAPDIS PO SCH ×4 (09:00→21:20)
[2023-09-17] MEDS: LINAGLIPTIN 5 MG TABLET PO SCH (09:00)
[2023-09-17] MEDS: CARVEDILOL 12.5 MG TABLET PO SCH ×2 (13:11→17:00)
[2023-09-17] MEDS: BENAZEPRIL HCL 20 MG TABLET PO SCH (13:11)
[2023-09-17] MEDS: CHOLECALCIFEROL 1,000 UNIT TABLET (VIT D3) PO SCH (13:12)
[2023-09-17] MEDS: CYANOCOBALAMIN 100 MCG TABLET PO SCH (13:12)
[2023-09-17] MEDS: MEMANTINE HCL 5 MG TABLET PO SCH ×3 (13:12→21:09)
[2023-09-17 16:00] VITALS: BP 90/62; TEMP 98.6; O2SAT 97
[2023-09-17 16:14] LABS: BASOPHILS % (AUTO) 0.1 % (0.0-2.0); EOSINOPHILS % (AUTO) 0.4 % (0.0-6.0); HEMATOCRIT 43 % (39-51); HEMOGLOBIN 13.9 g/dL (13.5-17.5); LYMPHOCYTES # (AUTO) 1.1 K/uL (0.8-4.8); LYMPHOCYTES % (AUTO) 14.5 % (20.0-44.0); MEAN CORPUSCULAR HEMOGLOBIN 28 PG (26.0-33.0); MEAN CORPUSCULAR HGB CONC 32 g/dl (31.0-36.0); MEAN CORPUSCULAR VOLUME 87 fL (80-96); MONOCYTES # (AUTO) 0.6 K/uL (0.1-1.30); MONOCYTES % (AUTO) 8.4 % (2.0-12.0); NEUTROPHILS # (AUTO) 5.8 K/uL (1.8-8.9); NEUTROPHILS % (AUTO) 76.6 % (43.0-81.0); PLATELET COUNT (AUTO) 134 K/uL (150-450); RED BLOOD CELL COUNT(AUTO) 4.96 MIL/uL (4.5-6.0); RED CELL DISTRIBUTION WIDTH 16.6 % (11.5-15.0); WHITE BLOOD COUNT (AUTO) 7.6 K/uL (4.3-11.0)
[2023-09-17 16:31] LABS: CALCIUM, SERUM 9.2 mg/dL (8.5-10.1); CREATININE 1.3 mg/dL (0.6-1.3); POTASSIUM 4.3 mmol/L (3.5-5.1)
[2023-09-17 20:09] VITALS: BP 93/62; TEMP 98.4; O2SAT 98
[2023-09-17] MEDS: ATORVASTATIN 40 MG TABLET PO SCH ×2 (21:09→21:20)
[2023-09-18] MEDS: LORAZEPAM 0.5 MG TABLET PO SCH ×3 (02:30→17:35)
[2023-09-18] MEDS: BLOOD SUGAR DIAGNOSTIC 1 EACH STRIP IN SCH ×4 (07:30→22:00)
[2023-09-18] MEDS: PANTOPRAZOLE 40 MG TABLET.DR PO SCH (07:39)
[2023-09-18 08:00] VITALS: BP 120/83; TEMP 98; O2SAT 100
[2023-09-18] MEDS: risperiDONE-M 0.5 MG TAB.RAPDIS PO SCH ×3 (09:17→21:04)
[2023-09-18] MEDS: OLANZAPINE ZYDIS 5 MG TAB.RAPDIS PO SCH ×4 (09:17→22:11)
[2023-09-18] MEDS: MEMANTINE HCL 5 MG TABLET PO SCH ×2 (09:18→21:03)
[2023-09-18] MEDS: LINAGLIPTIN 5 MG TABLET PO SCH (09:18)
[2023-09-18] MEDS: CHOLECALCIFEROL 1,000 UNIT TABLET (VIT D3) PO SCH (09:18)
[2023-09-18] MEDS: DIVALPROEX SODIUM 500 MG TABLET.DR PO SCH ×3 (09:18→17:01)
[2023-09-18] MEDS: CYANOCOBALAMIN 100 MCG TABLET PO SCH (09:18)
[2023-09-18] MEDS: LORAZEPAM 1 MG TABLET PO PRN (14:20)
[2023-09-18 16:14] VITALS: BP 114/87; TEMP 97.8; O2SAT 100
[2023-09-18 21:00] VITALS: BP 115/87; TEMP 98; O2SAT 97
[2023-09-18] MEDS: ATORVASTATIN 40 MG TABLET PO SCH (22:10)
[2023-09-19] MEDS: LORAZEPAM 0.5 MG TABLET PO SCH ×3 (02:30→17:30)
[2023-09-19] MEDS: BLOOD SUGAR DIAGNOSTIC 1 EACH STRIP IN SCH ×4 (07:55→22:08)
[2023-09-19] MEDS: INSULIN REGULAR, HUMAN 100 UNIT/ML 3 ML VIAL SQ PRN ×2 (07:56→22:08)
[2023-09-19 08:00] VITALS: BP 109/80; TEMP 98; O2SAT 100
[2023-09-19] MEDS: MEMANTINE HCL 5 MG TABLET PO SCH ×2 (08:17→21:00)
[2023-09-19] MEDS: risperiDONE-M 0.5 MG TAB.RAPDIS PO SCH ×4 (08:17→17:27)
[2023-09-19] MEDS: DIVALPROEX SODIUM 500 MG TABLET.DR PO SCH ×4 (08:17→17:27)
[2023-09-19] MEDS: OLANZAPINE ZYDIS 5 MG TAB.RAPDIS PO SCH ×4 (08:17→22:00)
[2023-09-19] MEDS: LINAGLIPTIN 5 MG TABLET PO SCH (08:17)
[2023-09-19] MEDS: CYANOCOBALAMIN 100 MCG TABLET PO SCH (08:17)
[2023-09-19] MEDS: CHOLECALCIFEROL 1,000 UNIT TABLET (VIT D3) PO SCH (08:18)
[2023-09-19] MEDS: PANTOPRAZOLE 40 MG TABLET.DR PO SCH (08:18)
[2023-09-19] MEDS ORDERED: LORAZEPAM INJ 2 MG/ML VIAL IM ONE (10:30)
[2023-09-19] MEDS: OXCARBAZEPINE 150 MG TABLET PO SCH ×3 (13:00→17:27)
[2023-09-19] MEDS ORDERED: RISPERIDONE 0.25 MG TAB.RAPDIS PO SCH (21:00)
[2023-09-19] MEDS: ATORVASTATIN 40 MG TABLET PO SCH (22:00)
[2023-09-20] MEDS: LORAZEPAM 0.5 MG TABLET PO SCH ×3 (03:46→18:29)
[2023-09-20] MEDS: LORAZEPAM 1 MG TABLET PO PRN ×3 (05:49→21:28)
[2023-09-20 08:04] VITALS: BP 103/55; TEMP 98.7
[2023-09-20] MEDS: INSULIN REGULAR, HUMAN 100 UNIT/ML 3 ML VIAL SQ PRN ×2 (08:39→22:23)
[2023-09-20] MEDS: BLOOD SUGAR DIAGNOSTIC 1 EACH STRIP IN SCH ×4 (08:40→22:21)
[2023-09-20] MEDS: PANTOPRAZOLE 40 MG TABLET.DR PO SCH (10:06)
[2023-09-20] MEDS: LINAGLIPTIN 5 MG TABLET PO SCH (10:06)
[2023-09-20] MEDS: CHOLECALCIFEROL 1,000 UNIT TABLET (VIT D3) PO SCH (10:07)
[2023-09-20] MEDS: DIVALPROEX SODIUM 500 MG TABLET.DR PO SCH ×3 (10:07→18:22)
[2023-09-20] MEDS: MEMANTINE HCL 5 MG TABLET PO SCH ×2 (10:07→21:29)
[2023-09-20] MEDS: OXCARBAZEPINE 150 MG TABLET PO SCH ×3 (10:08→18:22)
[2023-09-20] MEDS: OLANZAPINE ZYDIS 5 MG TAB.RAPDIS PO SCH ×4 (10:08→21:28)
[2023-09-20] MEDS: CYANOCOBALAMIN 100 MCG TABLET PO SCH (10:08)
[2023-09-20] MEDS: risperiDONE-M 0.5 MG TAB.RAPDIS PO SCH ×3 (10:08→18:23)
[2023-09-20 20:05] VITALS: BP 138/82; TEMP 98.4; O2SAT 97
[2023-09-20] MEDS ORDERED: risperiDONE-M 0.5 MG TAB.RAPDIS PO SCH (21:00)
[2023-09-20] MEDS: ATORVASTATIN 40 MG TABLET PO SCH (21:29)
[2023-09-21] MEDS: LORAZEPAM 0.5 MG TABLET PO SCH ×2 (02:24→10:07)
[2023-09-21] MEDS: LORAZEPAM 1 MG TABLET PO PRN (03:36)
[2023-09-21] MEDS: BLOOD SUGAR DIAGNOSTIC 1 EACH STRIP IN SCH ×2 (07:30→12:00)
[2023-09-21] MEDS: OXCARBAZEPINE 150 MG TABLET PO SCH (08:19)
[2023-09-21] MEDS: CHOLECALCIFEROL 1,000 UNIT TABLET (VIT D3) PO SCH (08:19)
[2023-09-21] MEDS: risperiDONE-M 0.5 MG TAB.RAPDIS PO SCH (08:20)
[2023-09-21] MEDS: CYANOCOBALAMIN 100 MCG TABLET PO SCH (08:20)
[2023-09-21] MEDS: DIVALPROEX SODIUM 500 MG TABLET.DR PO SCH (08:20)
[2023-09-21] MEDS: PANTOPRAZOLE 40 MG TABLET.DR PO SCH (08:20)
[2023-09-21] MEDS: MEMANTINE HCL 5 MG TABLET PO SCH (08:20)
[2023-09-21] MEDS: LINAGLIPTIN 5 MG TABLET PO SCH (08:20)
[2023-09-21] MEDS: OLANZAPINE ZYDIS 5 MG TAB.RAPDIS PO SCH (08:20)
== END 2023-09-21 13:15 | DRG 885 ==
LOC: GPS 19:51
PROVIDERS: ADMIT Psychiatry & Neurology Psychosomatic Medicine; ATTEND Internal Medicine
DX: F29 Unspecified psychosis not due to a substance or known physiological condition (principal); I11.0 Hypertensive heart disease with heart failure; N17.0 Acute kidney failure with tubular necrosis; I50.32 Chronic diastolic (congestive) heart failure; F03.93 Unspecified dementia, unspecified severity, with mood disturbance; F03.92 Unspecified dementia, unspecified severity, with psychotic disturbance; E11.9 Type 2 diabetes mellitus without complications; D64.9 Anemia, unspecified; E66.9 Obesity, unspecified; E78.5 Hyperlipidemia, unspecified; E86.0 Dehydration; F43.10 Post-traumatic stress disorder, unspecified; Z87.820 Personal history of traumatic brain injury; Z91.199 Patient's noncompliance with other medical treatment and regimen due to unspecified reason; M89.8X9 Other specified disorders of bone, unspecified site; Z68.37 Body mass index [BMI] 37.0-37.9, adult; M62.81 Muscle weakness (generalized); F41.9 Anxiety disorder, unspecified; R94.31 Abnormal electrocardiogram [ECG] [EKG]; F32.A Depression, unspecified; Z79.4 Long term (current) use of insulin
CPT/HCPCS: 36415; 80048-TC; 80053-TC; 80061-TC; 82962-TC; 85025-TC; J1815; J2060; J3490

== ENCOUNTER → 2023-09-24 | Emergency (ER) | payer MEDICARE, OTHER ==
[~2023-09-24] VITALS: Ht 182.9 cm; Wt 127.0 kg
[~2023-09-24] MED LIST changes: -CHOL100043 PO; +CHOL400T PO; +INSU100V3 SQ; -MAGN400O6 PO; -METF-440 PO; -POTA10TA10 PO
[2023-09-24 13:02] LABS: BASOPHILS % (AUTO) 0.6 % (0.0-2.0); EOSINOPHILS % (AUTO) 0.3 % (0.0-6.0); HEMATOCRIT 40 % (39-51); HEMOGLOBIN 13.3 g/dL (13.5-17.5); LYMPHOCYTES % (AUTO) 14.5 % (20.0-44.0); MEAN CORPUSCULAR HEMOGLOBIN 28 PG (26.0-33.0); MEAN CORPUSCULAR HGB CONC 33 g/dl (31.0-36.0); MEAN CORPUSCULAR VOLUME 86 fL (80-96); MONOCYTES # (AUTO) 0.5 K/uL (0.1-1.30); MONOCYTES % (AUTO) 8.1 % (2.0-12.0); NEUTROPHILS % (AUTO) 76.5 % (43.0-81.0); PLATELET COUNT (AUTO) 121 K/uL (150-450); RED BLOOD CELL COUNT(AUTO) 4.68 MIL/uL (4.5-6.0); RED CELL DISTRIBUTION WIDTH 16.6 % (11.5-15.0); WHITE BLOOD COUNT (AUTO) 6.6 K/uL (4.3-11.0)
[2023-09-24 13:28] LABS: CARBON DIOXIDE 26 mmol/L (21-32); CHLORIDE 103 mmol/L (98-107); CREATININE 1.1 mg/dL (0.6-1.3); GLUCOSE 114 mg/dL (74-106); POTASSIUM 3.8 mmol/L (3.5-5.1); SODIUM SERUM 138 mmol/L (136-145); UREA NITROGEN, BLOOD 22 mg/dL (7-18)
[2023-09-24 13:38] LABS: APPEARANCE,URINE SLIGHTLY CLOUDY (CLEAR); BILIRUBIN,URINE 1+ (NEGATIVE); BLOOD, URINE NEGATIVE Ery/uL (NEGATIVE); COLOR,URINE DARK YELLOW (YELLOW); KETONES,URINE TRACE mg/dL (NEGATIVE); LEUKOCYTE ESTERASE ,URINE NEGATIVE (NEGATIVE); NITRITE, URINE NEGATIVE (NEGATIVE); PROTEIN,URINE NEGATIVE (NEGATIVE); UGLUCOSE TRACE mg/dL (NEGATIVE)
[2023-09-24 13:39] LABS: ALANINE AMINOTRANSFERASE 39 U/L (12-78); ALBUMIN 3.6 g/dL (3.4-5.0); ALCOHOL, BLOOD < 3 mg/dL (0-10); ALKALINE PHOSPHATASE 80 U/L (46-116); ASPARTATE AMINOTRANSFERASE 28 U/L (15-37); BILIRUBIN,DIRECT 0.3 mg/dL (0.0-0.2); BILIRUBIN,TOTAL 0.8 mg/dL (0.2-1.0); TOTAL PROTEIN, SERUM 7.8 g/dL (6.4-8.2)
[2023-09-24 13:50] LABS: AMPHETAMINE, URINE NEGATIVE (NEGATIVE); BARBITURATE, URINE NEGATIVE (NEGATIVE); BENZODIAZEPINE, URINE NEGATIVE (NEGATIVE); CANNABINOID, URINE NEGATIVE (NEGATIVE); COCCAINE, URINE NEGATIVE (NEGATIVE); OPIATE, URINE NEGATIVE (NEGATIVE); PHENCYCLIDINE SCREEN,URINE NEGATIVE (NEGATIVE)
[2023-09-24 13:51] LABS: ACETAMINOPHEN <10 ug/ml (10-30); SALICYLATE < 2.3 mg/dL (2.8-20.0)
[2023-09-24 13:52] LABS: ADD URINE CULTURE NO; BACTERIA,URINE None seen /HPF (None Seen); RBC,URINE 0-2 /HPF (0-2); SQUAMOUS EPITHELIAL CELL,UR Few /HPF (None Seen); WBC,URINE 0-2 /HPF (0-3)
[2023-09-24 16:51] VITALS: BP 138/90; TEMP 98.5; O2SAT 98
== END ==
LOC: ER 12:21
DX: R46.1 Bizarre personal appearance (principal); R41.82 Altered mental status, unspecified; I10 Essential (primary) hypertension; E11.9 Type 2 diabetes mellitus without complications; Z79.899 Other long term (current) drug therapy; Z20.822 Contact with and (suspected) exposure to COVID-19
CPT/HCPCS: 36415; 70450-TC; 80048-TC; 80076-TC; 81001; 82962-TC; 85025-TC; C9803; G0480

== ENCOUNTER → 2024-01-05 | Emergency (ER) | payer MEDICARE, OTHER ==
[~2024-01-05] VITALS: Ht 182.9 cm; Wt 86.2 kg
[~2024-01-05] MED LIST changes: +LORAZEPAM 1 MG TABLET ONE
[2024-01-05 04:02] LABS: BASOPHILS % (AUTO) 0.4 % (0.0-2.0); EOSINOPHILS # (AUTO) 0.1 K/uL (0.0-0.7); EOSINOPHILS % (AUTO) 1.3 % (0.0-6.0); HEMATOCRIT 35 % (39-51); HEMOGLOBIN 11.6 g/dL (13.5-17.5); LYMPHOCYTES # (AUTO) 1.6 K/uL (0.8-4.8); MEAN CORPUSCULAR HEMOGLOBIN 30 PG (26.0-33.0); MEAN CORPUSCULAR HGB CONC 33 g/dl (31.0-36.0); MEAN CORPUSCULAR VOLUME 90 fL (80-96); MONOCYTES # (AUTO) 0.4 K/uL (0.1-1.30); MONOCYTES % (AUTO) 5.3 % (2.0-12.0); PLATELET COUNT (AUTO) 145 K/uL (150-450); RED BLOOD CELL COUNT(AUTO) 3.88 MIL/uL (4.5-6.0); RED CELL DISTRIBUTION WIDTH 18.2 % (11.5-15.0); WHITE BLOOD COUNT (AUTO) 7.1 K/uL (4.3-11.0)
[2024-01-05 04:19] LABS: ALANINE AMINOTRANSFERASE 19 U/L (12-78); ALBUMIN 3.1 g/dL (3.4-5.0); ALCOHOL, BLOOD < 3 mg/dL (0-10); ALKALINE PHOSPHATASE 76 U/L (46-116); ASPARTATE AMINOTRANSFERASE 15 U/L (15-37); BILIRUBIN,DIRECT 0.3 mg/dL (0.0-0.2); BILIRUBIN,TOTAL 0.8 mg/dL (0.2-1.0); CALCIUM, SERUM 8.5 mg/dL (8.5-10.1); CARBON DIOXIDE 28 mmol/L (21-32); CHLORIDE 106 mmol/L (98-107); GLUCOSE 108 mg/dL (74-106); POTASSIUM 3.8 mmol/L (3.5-5.1); SODIUM SERUM 141 mmol/L (136-145); TOTAL PROTEIN, SERUM 6.9 g/dL (6.4-8.2); UREA NITROGEN, BLOOD 26 mg/dL (7-18)
[2024-01-05 04:51] LABS: ACETAMINOPHEN <10 ug/ml (10-30); SALICYLATE < 2.3 mg/dL (2.8-20.0)
[2024-01-05] MEDS: LORAZEPAM 1 MG TABLET PO ONE (08:58)
[2024-01-05 09:50] VITALS: BP 122/81; TEMP 98.4; O2SAT 98
== END ==
LOC: ER 03:33
DX: R45.6 Violent behavior (principal); I10 Essential (primary) hypertension; E11.9 Type 2 diabetes mellitus without complications; R56.9 Unspecified convulsions; G30.9 Alzheimer's disease, unspecified; F02.80 Dementia in other diseases classified elsewhere, unspecified severity, without behavioral disturbance, psychotic disturbance, mood disturbance, and anxiety; K21.9 Gastro-esophageal reflux disease without esophagitis; F29 Unspecified psychosis not due to a substance or known physiological condition; F39 Unspecified mood [affective] disorder; F10.10 Alcohol abuse, uncomplicated; Z20.822 Contact with and (suspected) exposure to COVID-19
CPT/HCPCS: 36415; 80048-TC; 80076-TC; 85025-TC; G0480

== ENCOUNTER 2024-02-02 01:45 | Emergency (ER) | payer MEDICARE, OTHER ==
[~2024-02-02] VITALS: Ht 182.9 cm; Wt 86.2 kg
[~2024-02-02 01:45] MED LIST changes: -LORAZEPAM 1 MG TABLET ONE
[2024-02-02 01:49] VITALS: TEMP 98.4
[2024-02-02 02:42] LABS: BASOPHILS % (AUTO) 0.1 % (0.0-2.0); EOSINOPHILS % (AUTO) 0.4 % (0.0-6.0); HEMATOCRIT 36 % (39-51); HEMOGLOBIN 11.8 g/dL (13.5-17.5); LYMPHOCYTES # (AUTO) 0.7 K/uL (0.8-4.8); LYMPHOCYTES % (AUTO) 7.6 % (20.0-44.0); MEAN CORPUSCULAR HEMOGLOBIN 29 PG (26.0-33.0); MEAN CORPUSCULAR HGB CONC 33 g/dl (31.0-36.0); MEAN CORPUSCULAR VOLUME 90 fL (80-96); MONOCYTES # (AUTO) 0.7 K/uL (0.1-1.30); MONOCYTES % (AUTO) 7.5 % (2.0-12.0); NEUTROPHILS # (AUTO) 8.1 K/uL (1.8-8.9); NEUTROPHILS % (AUTO) 84.4 % (43.0-81.0); PLATELET COUNT (AUTO) 135 K/uL (150-450); RED BLOOD CELL COUNT(AUTO) 4.02 MIL/uL (4.5-6.0); RED CELL DISTRIBUTION WIDTH 17.8 % (11.5-15.0); WHITE BLOOD COUNT (AUTO) 9.6 K/uL (4.3-11.0)
[2024-02-02 03:01] LABS: ALANINE AMINOTRANSFERASE 12 U/L (12-78); ALBUMIN 2.7 g/dL (3.4-5.0); ALCOHOL, BLOOD < 3 mg/dL (0-10); ALKALINE PHOSPHATASE 64 U/L (46-116); ASPARTATE AMINOTRANSFERASE 13 U/L (15-37); BILIRUBIN,DIRECT 0.3 mg/dL (0.0-0.2); BILIRUBIN,TOTAL 0.7 mg/dL (0.2-1.0); CALCIUM, SERUM 7.7 mg/dL (8.5-10.1); CARBON DIOXIDE 27 mmol/L (21-32); CHLORIDE 104 mmol/L (98-107); GLUCOSE 76 mg/dL (74-106); POTASSIUM 4.1 mmol/L (3.5-5.1); SODIUM SERUM 137 mmol/L (136-145); TOTAL PROTEIN, SERUM 6.6 g/dL (6.4-8.2); UREA NITROGEN, BLOOD 20 mg/dL (7-18)
[2024-02-02 03:07] LABS: ACETAMINOPHEN <10 ug/ml (10-30); SALICYLATE 0.6 mg/dL (2.8-20.0)
[2024-02-02 12:32] VITALS: BP 108/66; O2SAT 96
== END 2024-02-02 12:32 ==
LOC: ER 01:59
DX: R45.6 Violent behavior (principal); F39 Unspecified mood [affective] disorder; G30.9 Alzheimer's disease, unspecified; R56.9 Unspecified convulsions; I10 Essential (primary) hypertension; E78.5 Hyperlipidemia, unspecified; K21.9 Gastro-esophageal reflux disease without esophagitis; E11.9 Type 2 diabetes mellitus without complications; F10.10 Alcohol abuse, uncomplicated; F29 Unspecified psychosis not due to a substance or known physiological condition; F02.80 Dementia in other diseases classified elsewhere, unspecified severity, without behavioral disturbance, psychotic disturbance, mood disturbance, and anxiety; Z87.39 Personal history of other diseases of the musculoskeletal system and connective tissue; Z20.822 Contact with and (suspected) exposure to COVID-19; Y90.9 Presence of alcohol in blood, level not specified
CPT/HCPCS: 36415; 80048-TC; 80076-TC; 85025-TC; G0480

== ENCOUNTER → 2024-02-08 | Emergency (ER) | payer MEDICARE, OTHER ==
[~2024-02-08] VITALS: Ht 182.9 cm; Wt 97.5 kg
[~2024-02-08] MED LIST changes: +ACET-2030 PO; +BENZ0.5T43 PO; +BISA10SU11 RC; +BUSP5TAB3 PO; +CHOL200059 PO; +CYAN-51 PO; +LORAZEPAM INJ 2 MG/ML VIAL ONE; +MAGN400O6 PO; +MELA5TAB PO; +METF-440 PO; +MULT-225 PO; +NA P133E RC; +OLAN7.5T3 PO; +OMEG1CAP40 PO; +RIVA10TA PO; +SITA100T PO; +TAMS-12 PO; +TRAZ-182 PO; +diphenhydrAMINE HCL 50 MG/ML VIAL ONE
[2024-02-08 16:29] VITALS: BP 134/69; TEMP 98.8; O2SAT 100
[2024-02-08 17:08] LABS: BASOPHILS % (AUTO) 0.3 % (0.0-2.0); EOSINOPHILS # (AUTO) 0.1 K/uL (0.0-0.7); EOSINOPHILS % (AUTO) 0.8 % (0.0-6.0); HEMATOCRIT 35 % (39-51); HEMOGLOBIN 11.2 g/dL (13.5-17.5); LYMPHOCYTES # (AUTO) 1.3 K/uL (0.8-4.8); LYMPHOCYTES % (AUTO) 16.1 % (20.0-44.0); MEAN CORPUSCULAR HEMOGLOBIN 28 PG (26.0-33.0); MEAN CORPUSCULAR HGB CONC 32 g/dl (31.0-36.0); MEAN CORPUSCULAR VOLUME 88 fL (80-96); MONOCYTES # (AUTO) 0.4 K/uL (0.1-1.30); MONOCYTES % (AUTO) 5.2 % (2.0-12.0); NEUTROPHILS # (AUTO) 6.5 K/uL (1.8-8.9); NEUTROPHILS % (AUTO) 77.6 % (43.0-81.0); PLATELET COUNT (AUTO) 157 K/uL (150-450); RED BLOOD CELL COUNT(AUTO) 3.97 MIL/uL (4.5-6.0); WHITE BLOOD COUNT (AUTO) 8.3 K/uL (4.3-11.0)
[2024-02-08 17:19] LABS: CALCIUM, SERUM 7.9 mg/dL (8.5-10.1); CARBON DIOXIDE 30 mmol/L (21-32); CHLORIDE 108 mmol/L (98-107); CREATININE 0.8 mg/dL (0.6-1.3); GLUCOSE 96 mg/dL (74-106); POTASSIUM 4.2 mmol/L (3.5-5.1); SODIUM SERUM 140 mmol/L (136-145); UREA NITROGEN, BLOOD 16 mg/dL (7-18)
[2024-02-08 17:27] LABS: ALANINE AMINOTRANSFERASE 21 U/L (12-78); ALBUMIN 2.7 g/dL (3.4-5.0); ALCOHOL, BLOOD < 3 mg/dL (0-10); ALKALINE PHOSPHATASE 71 U/L (46-116); ASPARTATE AMINOTRANSFERASE 17 U/L (15-37); BILIRUBIN,DIRECT 0.2 mg/dL (0.0-0.2); BILIRUBIN,TOTAL 0.5 mg/dL (0.2-1.0); TOTAL PROTEIN, SERUM 6.7 g/dL (6.4-8.2)
[2024-02-08 17:38] LABS: ACETAMINOPHEN 0 ug/ml (10-30); SALICYLATE 0.3 mg/dL (2.8-20.0)
[2024-02-08] MEDS: LORAZEPAM INJ 2 MG/ML VIAL IM ONE (18:25)
[2024-02-08] MEDS: diphenhydrAMINE HCL 50 MG/ML VIAL IM ONE (18:26)
== END | disposition home or self-care (01) ==
LOC: ER 16:31
DX: R45.6 Violent behavior (principal); G30.9 Alzheimer's disease, unspecified; R56.9 Unspecified convulsions; I10 Essential (primary) hypertension; E78.5 Hyperlipidemia, unspecified; K21.9 Gastro-esophageal reflux disease without esophagitis; E11.9 Type 2 diabetes mellitus without complications; F39 Unspecified mood [affective] disorder; F29 Unspecified psychosis not due to a substance or known physiological condition; F02.80 Dementia in other diseases classified elsewhere, unspecified severity, without behavioral disturbance, psychotic disturbance, mood disturbance, and anxiety; F10.10 Alcohol abuse, uncomplicated; Y90.9 Presence of alcohol in blood, level not specified
CPT/HCPCS: 99284; 96372 ×2; 85025; 80048; 80076; 36415; 87081; 80143; 80320; J2060; J1200; G0480

== ENCOUNTER 2024-04-04 11:11 | Inpatient (IN) | payer MEDICARE, OTHER ==
[~2024-04-04] VITALS: Ht 182.9 cm; Wt 97.5 kg
[~2024-04-04 11:11] MED LIST changes: -BENA20TA9 PO; -CARV25TA2 PO; -CHOL400T PO; -CYAN100T44 PO; -INSU100V3 SQ; -LINA5TAB PO; -LORA-259 PO; -LORAZEPAM INJ 2 MG/ML VIAL ONE; -MAGN400T26 PO; -MEMA10TA PO; -OLAN5TAB3 PO; -RISP1TAB97 PO; -diphenhydrAMINE HCL 50 MG/ML VIAL ONE
[2024-04-04 11:49] LABS: BASOPHILS % (AUTO) 0.1 % (0.0-2.0); EOSINOPHILS # (AUTO) 0.1 K/uL (0.0-0.7); EOSINOPHILS % (AUTO) 1.4 % (0.0-6.0); HEMATOCRIT 29 % (39-51); HEMOGLOBIN 9.5 g/dL (13.5-17.5); LYMPHOCYTES # (AUTO) 1.3 K/uL (0.8-4.8); LYMPHOCYTES % (AUTO) 17.7 % (20.0-44.0); MEAN CORPUSCULAR HEMOGLOBIN 28 PG (26.0-33.0); MEAN CORPUSCULAR HGB CONC 33 g/dl (31.0-36.0); MEAN CORPUSCULAR VOLUME 87 fL (80-96); MONOCYTES # (AUTO) 0.5 K/uL (0.1-1.30); MONOCYTES % (AUTO) 6.5 % (2.0-12.0); NEUTROPHILS # (AUTO) 5.6 K/uL (1.8-8.9); NEUTROPHILS % (AUTO) 74.3 % (43.0-81.0); PLATELET COUNT (AUTO) 78 K/uL (150-450); RED BLOOD CELL COUNT(AUTO) 3.37 MIL/uL (4.5-6.0); RED CELL DISTRIBUTION WIDTH 19.5 % (11.5-15.0); WHITE BLOOD COUNT (AUTO) 7.6 K/uL (4.3-11.0)
[2024-04-04 11:55] LABS: CALCIUM, SERUM 8.5 mg/dL (8.5-10.1); POTASSIUM 3.7 mmol/L (3.5-5.1)
[2024-04-04 12:04] LABS: LACTIC ACID 1.7 mmol/L (0.4-2.0)
[2024-04-04] MEDS: VANCOMYCIN 1 GM in IV D5W 250 ML IV ONE (12:08)
[2024-04-04] MEDS: PIPERACILLIN /TAZOBACTAM 3.375 G in IV D5W 50 ML IV ONE (12:09)
[2024-04-04] MEDS ORDERED: OLAN20TA3 PO (12:36)
[2024-04-04] MEDS ORDERED: OXCA300T4 PO (12:36)
[2024-04-04] MEDS ORDERED: OLAN5TAB3 PO (12:36)
[2024-04-04] MEDS ORDERED: DEXT38GE12 PO (12:36)
[2024-04-04] MEDS ORDERED: FOLI0.4T6 PO (12:36)
[2024-04-04] MEDS ORDERED: DIVA125C5 PO ×2 (12:36)
[2024-04-04] MEDS ORDERED: GLUC1KIT IM (12:36)
[2024-04-04] MEDS ORDERED: METO25TA6 PO (12:36)
[2024-04-04] MEDS ORDERED: MAG HYDROX/AL HYDROX/SIMETH 30 ML UDC PO PRN (13:30)
[2024-04-04] MEDS ORDERED: Z GUARD REMEDY 4 OZ OINT TP PRN (13:30)
[2024-04-04] MEDS ORDERED: DEXTROSE 50%-WATER 50 ML DISP.SYRIN IV PRN (13:30)
[2024-04-04] MEDS ORDERED: MAGNESIUM HYDROXIDE 30 ML UDC PO PRN (13:30)
[2024-04-04] MEDS ORDERED: CHOLECALCIFEROL 1,000 UNIT TABLET (VIT D3) PO SCH (13:30)
[2024-04-04] MEDS ORDERED: ONDANSETRON HCL/PF 4 MG/2 ML VIAL IVP PRN (13:30)
[2024-04-04 14:13] LABS: LYMPHOCYTES % (MANUAL) 17 % (16-48); MONOCYTES % (MANUAL) 3 % (0-11.0); NEUTROPHILS % (MANUAL) 80 (42-76)
[2024-04-04 14:14] LABS: PLATELET ESTIMATE DECREASED
[2024-04-04 14:15] LABS: ANISOCYTOSIS 1+
[2024-04-04 14:32] LABS: OVALOCYTES 1+
[2024-04-04] MEDS: OLANZAPINE 10 MG VIAL IM ONE (14:57)
[2024-04-04] MEDS: CYANOCOBALAMIN 500 MCG TABLET PO SCH (15:24)
[2024-04-04] MEDS: FOLIC ACID 1 MG TABLET PO SCH (15:24)
[2024-04-04 16:00] VITALS: BP 108/73; TEMP 97.3; O2SAT 97
[2024-04-04] MEDS: OXCARBAZEPINE 150 MG TABLET PO SCH (16:08)
[2024-04-04] MEDS: METOPROLOL TARTRATE 25 MG TABLET PO SCH (16:08)
[2024-04-04] MEDS: OLANZAPINE 5 MG TABLET PO SCH (16:08)
[2024-04-04] MEDS ORDERED: Medication Not On Formulary EA (Omega-3 Fatty Acids/Fish Oil (Omega 3 1,000 Mg Softgel) PO SCH (17:00)
[2024-04-04] MEDS: RIVAROXABAN 10 MG TABLET PO SCH (17:06)
[2024-04-04] MEDS: PIPERACILLIN /TAZOBACTAM 3.375 G in IV D5W 50 ML IV SCH (17:06)
[2024-04-04] MEDS: BLOOD SUGAR DIAGNOSTIC 1 EACH STRIP IN SCH (17:06)
[2024-04-04] MEDS: INSULIN REGULAR, HUMAN 100 UNIT/ML 3 ML VIAL SQ PRN (17:22)
[2024-04-04] MEDS: ACETAMINOPHEN 325 MG TABLET PO PRN (21:03)
[2024-04-04] MEDS ORDERED: Medication Not On Formulary EA (Melatonin 5 MG) PO SCH (22:00)
[2024-04-04] MEDS: DIVALPROEX SODIUM 125 MG CAP.SPRINK PO SCH (22:15)
[2024-04-04] MEDS: TAMSULOSIN 0.4 MG CAP.SR.24H PO SCH (22:16)
[2024-04-04] MEDS: ATORVASTATIN 40 MG TABLET PO SCH (22:16)
[2024-04-05] VITALS: BP 114/68; TEMP 97.8; O2SAT 97
[2024-04-05 07:41] LABS: BASOPHILS % (AUTO) 0.1 % (0.0-2.0); EOSINOPHILS # (AUTO) 0.2 K/uL (0.0-0.7); EOSINOPHILS % (AUTO) 2.3 % (0.0-6.0); HEMATOCRIT 28 % (39-51); HEMOGLOBIN 9.4 g/dL (13.5-17.5); LYMPHOCYTES # (AUTO) 1.3 K/uL (0.8-4.8); LYMPHOCYTES % (AUTO) 16.8 % (20.0-44.0); MEAN CORPUSCULAR HEMOGLOBIN 29 PG (26.0-33.0); MEAN CORPUSCULAR HGB CONC 34 g/dl (31.0-36.0); MEAN CORPUSCULAR VOLUME 87 fL (80-96); MONOCYTES # (AUTO) 0.6 K/uL (0.1-1.30); MONOCYTES % (AUTO) 8.1 % (2.0-12.0); NEUTROPHILS # (AUTO) 5.8 K/uL (1.8-8.9); NEUTROPHILS % (AUTO) 72.7 % (43.0-81.0); PLATELET COUNT (AUTO) 70 K/uL (150-450); RED BLOOD CELL COUNT(AUTO) 3.23 MIL/uL (4.5-6.0); RED CELL DISTRIBUTION WIDTH 20.1 % (11.5-15.0)
[2024-04-05 07:48] LABS: CREATININE 0.8 mg/dL (0.6-1.3); MAGNESIUM 1.8 mg/dL (1.8-2.4); PHOSPHORUS 2.5 mg/dL (2.5-4.9); POTASSIUM 3.9 mmol/L (3.5-5.1)
[2024-04-05 08:00] VITALS: BP 115/59; TEMP 98.7; O2SAT 98
[2024-04-05] MEDS: PANTOPRAZOLE 40 MG TABLET.DR PO SCH (08:53)
[2024-04-05] MEDS: DIVALPROEX SODIUM 125 MG CAP.SPRINK PO SCH (08:56)
[2024-04-05] MEDS: MULTIVITAMINS,THERAGRAN 1 UDTAB TABLET PO SCH (08:58)
[2024-04-05] MEDS: LINAGLIPTIN 5 MG TABLET PO SCH (08:58)
[2024-04-05] MEDS: CHOLECALCIFEROL 1,000 UNIT TABLET (VIT D3) PO SCH (08:59)
[2024-04-05 10:57] LABS: ANISOCYTOSIS 1+; BAND % (MANUAL) 3 % (0.0-5.0); BASOPHILS % (MANUAL) 0 % (0.0-2.0); EOSINOPHILS % (MANUAL) 0 % (0-4); LYMPHOCYTES % (MANUAL) 15 % (16-48); MONOCYTES % (MANUAL) 4 % (0-11.0); NEUTROPHILS % (MANUAL) 78 (42-76); PLATELET ESTIMATE DECREASED
[2024-04-05] MEDS: VANCOMYCIN 1 GM in IV D5W 250 ML IV SCH (13:54)
[2024-04-05 16:00] VITALS: BP 126/78; TEMP 98.3; O2SAT 98
[2024-04-05] MEDS: PERMETHRIN 5% CRM 60 GM TUBE TP ONE (17:49)
[2024-04-06] VITALS: BP 98/76; TEMP 98.8; O2SAT 98
[2024-04-06 07:29] LABS: BASOPHILS % (AUTO) 0.2 % (0.0-2.0); EOSINOPHILS # (AUTO) 0.2 K/uL (0.0-0.7); EOSINOPHILS % (AUTO) 1.7 % (0.0-6.0); HEMATOCRIT 30 % (39-51); HEMOGLOBIN 10.1 g/dL (13.5-17.5); LYMPHOCYTES # (AUTO) 1.4 K/uL (0.8-4.8); LYMPHOCYTES % (AUTO) 15.6 % (20.0-44.0); MEAN CORPUSCULAR HEMOGLOBIN 29 PG (26.0-33.0); MEAN CORPUSCULAR HGB CONC 34 g/dl (31.0-36.0); MEAN CORPUSCULAR VOLUME 86 fL (80-96); MONOCYTES # (AUTO) 0.8 K/uL (0.1-1.30); MONOCYTES % (AUTO) 9.2 % (2.0-12.0); NEUTROPHILS # (AUTO) 6.6 K/uL (1.8-8.9); NEUTROPHILS % (AUTO) 73.3 % (43.0-81.0); PLATELET COUNT (AUTO) 77 K/uL (150-450); RED BLOOD CELL COUNT(AUTO) 3.49 MIL/uL (4.5-6.0); RED CELL DISTRIBUTION WIDTH 19.7 % (11.5-15.0)
[2024-04-06 07:51] LABS: CALCIUM, SERUM 8.4 mg/dL (8.5-10.1); CREATININE 0.8 mg/dL (0.6-1.3); POTASSIUM 3.7 mmol/L (3.5-5.1)
[2024-04-06 08:00] VITALS: BP 102/68; TEMP 98.6; O2SAT 98
[2024-04-06 11:46] LABS: BASOPHILS % (MANUAL) 0 % (0.0-2.0); EOSINOPHILS % (MANUAL) 0 % (0-4); LYMPHOCYTES % (MANUAL) 13 % (16-48); MONOCYTES % (MANUAL) 4 % (0-11.0); NEUTROPHILS % (MANUAL) 83 (42-76)
[2024-04-06 11:47] LABS: ANISOCYTOSIS 1+; PLATELET ESTIMATE DECREASED
[2024-04-06 12:00] VITALS: BP 124/82; TEMP 97.7; O2SAT 97
[2024-04-06 16:00] VITALS: BP 91/63; TEMP 97.3; O2SAT 97
[2024-04-06 18:00] VITALS: BP 91/63; TEMP 97.3; O2SAT 97
[2024-04-06 20:00] VITALS: BP 109/53; TEMP 97.9; O2SAT 100
[2024-04-07 04:00] VITALS: BP 105/55; TEMP 97.5; O2SAT 99
[2024-04-07 08:00] VITALS: BP 92/62; TEMP 97.8; O2SAT 97
[2024-04-07 11:58] LABS: CALCIUM, SERUM 7.7 mg/dL (8.5-10.1); CREATININE 0.8 mg/dL (0.6-1.3); POTASSIUM 3.9 mmol/L (3.5-5.1)
[2024-04-07 16:00] VITALS: BP 96/59; TEMP 97.5; O2SAT 97
[2024-04-07 20:00] VITALS: BP 96/62; TEMP 97.3; O2SAT 100
[2024-04-08 04:00] VITALS: BP 100/69; TEMP 98.8
[2024-04-08 07:35] LABS: BASOPHILS % (AUTO) 0.2 % (0.0-2.0); EOSINOPHILS # (AUTO) 0.2 K/uL (0.0-0.7); HEMATOCRIT 27 % (39-51); LYMPHOCYTES % (AUTO) 12.2 % (20.0-44.0); MEAN CORPUSCULAR HEMOGLOBIN 29 PG (26.0-33.0); MEAN CORPUSCULAR HGB CONC 34 g/dl (31.0-36.0); MEAN CORPUSCULAR VOLUME 86 fL (80-96); MONOCYTES # (AUTO) 0.7 K/uL (0.1-1.30); MONOCYTES % (AUTO) 7.9 % (2.0-12.0); NEUTROPHILS # (AUTO) 6.6 K/uL (1.8-8.9); NEUTROPHILS % (AUTO) 77.7 % (43.0-81.0); PLATELET COUNT (AUTO) 78 K/uL (150-450); RED BLOOD CELL COUNT(AUTO) 3.14 MIL/uL (4.5-6.0); RED CELL DISTRIBUTION WIDTH 19.9 % (11.5-15.0); WHITE BLOOD COUNT (AUTO) 8.5 K/uL (4.3-11.0)
[2024-04-08 07:54] LABS: CALCIUM, SERUM 7.5 mg/dL (8.5-10.1); CREATININE 0.8 mg/dL (0.6-1.3); POTASSIUM 3.8 mmol/L (3.5-5.1)
[2024-04-08 08:00] VITALS: BP 110/65; TEMP 98.9; O2SAT 100
[2024-04-08] MEDS ORDERED: CLIN300C3 PO (10:34)
[2024-04-08 11:33] LABS: BAND % (MANUAL) 1 % (0.0-5.0); EOSINOPHILS % (MANUAL) 1 % (0-4); LYMPHOCYTES % (MANUAL) 12 % (16-48); MONOCYTES % (MANUAL) 7 % (0-11.0); NEUTROPHILS % (MANUAL) 79 (42-76)
[2024-04-08 11:34] LABS: ANISOCYTOSIS 1+; PLATELET ESTIMATE DECREASED
[2024-04-08] MEDS: IV NS 0.9% 500 ML IV ONE (14:04)
[2024-04-08 16:00] VITALS: BP 99/60; TEMP 98.2; O2SAT 100
[2024-04-08] MEDS: IV NS 0.9% 1,000 ML IV PRN (17:57)
[2024-04-08] MEDS ORDERED: IV NS 0.9% 1,000 ML BAG IV PRN (18:00)
[2024-04-08 20:00] VITALS: BP 108/66; TEMP 98.2; O2SAT 100
[2024-04-09 04:00] VITALS: BP 108/66; TEMP 98.2; O2SAT 100
[2024-04-09 08:18] VITALS: BP 98/69; TEMP 98.8
[2024-04-09 08:55] VITALS: BP 98/69
[2024-04-09] MEDS ORDERED: METO25TA6 PO (10:04)
[2024-04-09] MEDS: IV NS 0.9% 500 ML BAG IV ONE (11:31)
[2024-04-09 12:14] LABS: CREATININE 0.7 mg/dL (0.6-1.3); POTASSIUM 3.5 mmol/L (3.5-5.1)
== END 2024-04-09 13:29 | DRG 602 ==
LOC: ER 11:25 → MEDSG1 12:59
PROVIDERS: ADMIT Nurse Practitioner Acute Care; ATTEND Nurse Practitioner Acute Care
DX: L03.115 Cellulitis of right lower limb (principal); G93.41 Metabolic encephalopathy; I48.20 Chronic atrial fibrillation, unspecified; D68.69 Other thrombophilia; L97.919 Non-pressure chronic ulcer of unspecified part of right lower leg with unspecified severity; Z79.01 Long term (current) use of anticoagulants; I11.0 Hypertensive heart disease with heart failure; I50.9 Heart failure, unspecified; E78.5 Hyperlipidemia, unspecified; J44.9 Chronic obstructive pulmonary disease, unspecified; Z79.84 Long term (current) use of oral hypoglycemic drugs; Z74.09 Other reduced mobility; F03.90 Unspecified dementia, unspecified severity, without behavioral disturbance, psychotic disturbance, mood disturbance, and anxiety; E11.622 Type 2 diabetes mellitus with other skin ulcer
CPT/HCPCS: 36415; 71045-TC; 73564-TC; 73590-TC; 80048-TC; 80202-TC; 82962-TC; 83605-TC; 83735-TC; 84100-TC; 85025-TC; 85652-TC; 86140-TC; 87040-TC; 87081-TC; A4223; G0378; J1815; J2543; J3370; J3490; J7030; J7040; J7050; J7060

== ENCOUNTER 2024-04-19 11:38 | Inpatient (IN) | payer MEDICARE, OTHER ==
[~2024-04-19] VITALS: Ht 182.9 cm; Wt 105.9 kg
[~2024-04-19 11:38] MED LIST changes: -BENZ0.5T43 PO; -BISA10SU11 RC; -BUSP5TAB3 PO; +CLIN300C3 PO; +DEXT38GE12 PO; -DIVA-78 PO; +DIVA125C5 PO; +FOLI0.4T6 PO; +GLUC1KIT IM; -MAGN400O6 PO; +METO25TA6 PO; -OLAN15TA3 PO; +OLAN20TA3 PO; +OLAN5TAB3 PO; -OLAN7.5T3 PO; +OXCA300T4 PO; -TEMA7.5C12 PO; -TRAZ-182 PO
[2024-04-19 11:59] LABS: BASOPHILS % (AUTO) 0.1 % (0.0-2.0); HEMATOCRIT 36 % (39-51); HEMOGLOBIN 11.5 g/dL (13.5-17.5); LYMPHOCYTES # (AUTO) 1.4 K/uL (0.8-4.8); MEAN CORPUSCULAR HEMOGLOBIN 27 PG (26.0-33.0); MEAN CORPUSCULAR HGB CONC 32 g/dl (31.0-36.0); MEAN CORPUSCULAR VOLUME 86 fL (80-96); MONOCYTES % (AUTO) 4.2 % (2.0-12.0); NEUTROPHILS # (AUTO) 20.3 K/uL (1.8-8.9); NEUTROPHILS % (AUTO) 89.7 % (43.0-81.0); PLATELET COUNT (AUTO) 240 K/uL (150-450); RED BLOOD CELL COUNT(AUTO) 4.23 MIL/uL (4.5-6.0); RED CELL DISTRIBUTION WIDTH 19.4 % (11.5-15.0); WHITE BLOOD COUNT (AUTO) 22.7 K/uL (4.3-11.0)
[2024-04-19] MEDS: VANCOMYCIN 1 GM in IV D5W 250 ML IV ONE (12:00)
[2024-04-19] MEDS: PIPERACILLIN /TAZOBACTAM 3.375 G in IV D5W 50 ML IV ONE (12:00)
[2024-04-19] MEDS: IV NS 0.9% 1,000 ML BAG IV ONE (12:10)
[2024-04-19 12:14] LABS: INR 1.15 (0.91-1.10); PARTIAL THROMBOPLASTIN TIME 27.9 SEC (24.3-34.3); PROTHROMBIN TIME 11.7 SECS (9.2-11.1)
[2024-04-19 12:22] LABS: CALCIUM, SERUM 8.3 mg/dL (8.5-10.1); CARBON DIOXIDE 25 mmol/L (21-32); CHLORIDE 108 mmol/L (98-107); CREATININE 1.7 mg/dL (0.6-1.3); GLUCOSE 124 mg/dL (74-106); SODIUM SERUM 141 mmol/L (136-145); UREA NITROGEN, BLOOD 47 mg/dL (7-18)
[2024-04-19 12:27] LABS: ALANINE AMINOTRANSFERASE 14 U/L (12-78); ALBUMIN 2.2 g/dL (3.4-5.0); ALKALINE PHOSPHATASE 72 U/L (46-116); ASPARTATE AMINOTRANSFERASE 15 U/L (15-37); BILIRUBIN,DIRECT 0.6 mg/dL (0.0-0.2); BILIRUBIN,TOTAL 1.4 mg/dL (0.2-1.0); TOTAL PROTEIN, SERUM 7.1 g/dL (6.4-8.2)
[2024-04-19 12:37] LABS: APPEARANCE,URINE Slightly Cloudy (CLEAR); BILIRUBIN,URINE MODERATE (NEGATIVE); BLOOD, URINE Trace-intact Ery/uL (NEGATIVE); COLOR,URINE DARK YELLOW (YELLOW); KETONES,URINE Trace mg/dL (NEGATIVE); LEUKOCYTE ESTERASE ,URINE Negative (NEGATIVE); NITRITE, URINE Negative (NEGATIVE); PH,URINE 5.5 (5.0-8.0); PROTEIN,URINE 100 mg/dl (NEGATIVE); UGLUCOSE Negative (NEGATIVE)
[2024-04-19 12:47] LABS: ADD URINE CULTURE YES; BACTERIA,URINE Moderate /HPF (None Seen); SQUAMOUS EPITHELIAL CELL,UR Few /HPF (None Seen)
[2024-04-19] MEDS ORDERED: ONDANSETRON HCL/PF 4 MG/2 ML VIAL IVP PRN (13:30)
[2024-04-19] MEDS ORDERED: METO25TA20 PO (14:02)
[2024-04-19 16:56] VITALS: BP 98/59; TEMP 100.8; O2SAT 98
[2024-04-19] MEDS: ACETAMINOPHEN 650 MG/SUPP.RECT RC ONE (17:02)
[2024-04-19] MEDS: IV D5/ 0.9% NACL 1,000 ML IV PRN (18:26)
[2024-04-19] MEDS: CEFEPIME 2 GM in IV D5W 100 ML IV SCH (18:26)
[2024-04-19] MEDS ORDERED: NA P133E RC (18:46)
[2024-04-19] MEDS ORDERED: ACET325T53 PO (18:46)
[2024-04-19 20:06] VITALS: BP 98/60; TEMP 98.2; O2SAT 98
[2024-04-19] MEDS ORDERED: DEXTROSE 50%-WATER 50 ML DISP.SYRIN IV PRN (20:30)
[2024-04-19] MEDS: ENOXAPARIN SODIUM 40 MG/0.4 ML DISP.SYRIN SQ SCH (20:55)
[2024-04-19] MEDS: INSULIN REGULAR, HUMAN 100 UNIT/ML 3 ML VIAL SQ PRN (21:08)
[2024-04-19] MEDS: BLOOD SUGAR DIAGNOSTIC 1 EACH STRIP IN SCH (21:08)
[2024-04-20] VITALS: BP 98/62; TEMP 98.4; O2SAT 95
[2024-04-20 00:15] VITALS: BP 98/62; TEMP 98.4; O2SAT 95
[2024-04-20 04:10] VITALS: BP 96/58; TEMP 99; O2SAT 99
[2024-04-20] MEDS ORDERED: DILTIAZEM HCL 25 MG IV ONE (05:12)
[2024-04-20] MEDS: DILTIAZEM HCL 50 MG IV IV ONE (05:16)
[2024-04-20 06:46] LABS: BASOPHILS % (AUTO) 0.1 % (0.0-2.0); HEMATOCRIT 35 % (39-51); HEMOGLOBIN 11.1 g/dL (13.5-17.5); LYMPHOCYTES # (AUTO) 0.7 K/uL (0.8-4.8); LYMPHOCYTES % (AUTO) 3.3 % (20.0-44.0); MEAN CORPUSCULAR HEMOGLOBIN 28 PG (26.0-33.0); MEAN CORPUSCULAR HGB CONC 32 g/dl (31.0-36.0); MEAN CORPUSCULAR VOLUME 87 fL (80-96); MONOCYTES # (AUTO) 0.8 K/uL (0.1-1.30); MONOCYTES % (AUTO) 4.2 % (2.0-12.0); NEUTROPHILS # (AUTO) 18.5 K/uL (1.8-8.9); NEUTROPHILS % (AUTO) 92.4 % (43.0-81.0); PLATELET COUNT (AUTO) 223 K/uL (150-450); RED BLOOD CELL COUNT(AUTO) 3.98 MIL/uL (4.5-6.0); RED CELL DISTRIBUTION WIDTH 19.8 % (11.5-15.0)
[2024-04-20 07:20] LABS: CALCIUM, SERUM 7.8 mg/dL (8.5-10.1); MAGNESIUM 1.9 mg/dL (1.8-2.4); PHOSPHORUS 2.6 mg/dL (2.5-4.9); POTASSIUM 3.3 mmol/L (3.5-5.1)
[2024-04-20 08:00] VITALS: BP 89/54; TEMP 100.3; O2SAT 97
[2024-04-20] MEDS: ACETAMINOPHEN 650 MG/SUPP.RECT RC PRN (08:01)
[2024-04-20] MEDS: PANTOPRAZOLE 40 MG VIAL IV SCH (08:10)
[2024-04-20] MEDS: POTASSIUM CL. PREMIX PERIPHER. 50 ML IV SCH (10:04)
[2024-04-20] MEDS ORDERED: VANCOMYCIN HCL 1.25 GM in IV D5W 250 ML IV SCH (12:00)
[2024-04-20] MEDS: CEFEPIME 2 GM in IV D5W 100 ML IV SCH (12:33)
[2024-04-20] MEDS: VANCOMYCIN 1 GM in IV D5W 250ml IV SCH (12:52)
[2024-04-20 16:00] VITALS: BP 91/70; TEMP 98.2; O2SAT 100
[2024-04-20 20:00] VITALS: BP 91/64; TEMP 98.8; O2SAT 100
[2024-04-21] VITALS: BP 94/67; TEMP 98.8; O2SAT 98
[2024-04-21 04:00] VITALS: BP 101/65; TEMP 98.1; O2SAT 99
[2024-04-21 05:25] VITALS: O2SAT 97
[2024-04-21 06:49] LABS: BASOPHILS % (AUTO) 0.2 % (0.0-2.0); EOSINOPHILS % (AUTO) 0.2 % (0.0-6.0); HEMATOCRIT 35 % (39-51); HEMOGLOBIN 11.2 g/dL (13.5-17.5); LYMPHOCYTES # (AUTO) 1.1 K/uL (0.8-4.8); LYMPHOCYTES % (AUTO) 6.3 % (20.0-44.0); MEAN CORPUSCULAR HEMOGLOBIN 28 PG (26.0-33.0); MEAN CORPUSCULAR HGB CONC 32 g/dl (31.0-36.0); MEAN CORPUSCULAR VOLUME 88 fL (80-96); MONOCYTES # (AUTO) 0.9 K/uL (0.1-1.30); MONOCYTES % (AUTO) 5.4 % (2.0-12.0); NEUTROPHILS # (AUTO) 14.9 K/uL (1.8-8.9); NEUTROPHILS % (AUTO) 87.9 % (43.0-81.0); PLATELET COUNT (AUTO) 196 K/uL (150-450); RED BLOOD CELL COUNT(AUTO) 3.99 MIL/uL (4.5-6.0); RED CELL DISTRIBUTION WIDTH 19.4 % (11.5-15.0)
[2024-04-21 07:19] LABS: ALANINE AMINOTRANSFERASE < 6 U/L (12-78); ALBUMIN 1.5 g/dL (3.4-5.0); ALKALINE PHOSPHATASE 69 U/L (46-116); ASPARTATE AMINOTRANSFERASE 13 U/L (15-37); BILIRUBIN,TOTAL 0.7 mg/dL (0.2-1.0); CALCIUM, SERUM 7.7 mg/dL (8.5-10.1); CARBON DIOXIDE 21 mmol/L (21-32); CHLORIDE 116 mmol/L (98-107); CREATININE 1.1 mg/dL (0.6-1.3); GLUCOSE 134 mg/dL (74-106); MAGNESIUM 2.2 mg/dL (1.8-2.4); PHOSPHORUS 2.7 mg/dL (2.5-4.9); POTASSIUM 3.9 mmol/L (3.5-5.1); SODIUM SERUM 148 mmol/L (136-145); TOTAL PROTEIN, SERUM 5.7 g/dL (6.4-8.2); UREA NITROGEN, BLOOD 44 mg/dL (7-18)
[2024-04-21 07:38] LABS: CREATINE KINASE, TOTAL 65 U/L (39-308)
[2024-04-21 08:00] VITALS: BP 88/60; TEMP 98.2; O2SAT 99
[2024-04-21] MEDS: DIGOXIN INJ 0.5 MG/2 ML AMPUL IV ONE ×2 (11:38→18:14)
[2024-04-21] MEDS: IV D5/0.45 NACL 1,000 ML IV PRN (11:47)
[2024-04-21] MEDS: VANCOMYCIN FOR RECTAL ENEMA 500 MG RC SCH (11:48)
[2024-04-21] MEDS ORDERED: VANCOMYCIN HCL 125 MG/2.5 ML ORAL.SUSP PO SCH (12:00)
[2024-04-21 16:00] VITALS: BP 88/65; TEMP 97.9; O2SAT 94
[2024-04-21 20:00] VITALS: BP 94/73; TEMP 97.7; O2SAT 100
[2024-04-22] VITALS (7 sets, daily range): BP systolic 87–99; BP diastolic 56–74; TEMP 97.5–98.1; O2SAT 95–100
[2024-04-22 06:54] LABS: BASOPHILS % (AUTO) 0.3 % (0.0-2.0); EOSINOPHILS # (AUTO) 0.1 K/uL (0.0-0.7); EOSINOPHILS % (AUTO) 1.3 % (0.0-6.0); HEMATOCRIT 34 % (39-51); HEMOGLOBIN 10.9 g/dL (13.5-17.5); MEAN CORPUSCULAR HEMOGLOBIN 29 PG (26.0-33.0); MEAN CORPUSCULAR HGB CONC 32 g/dl (31.0-36.0); MEAN CORPUSCULAR VOLUME 89 fL (80-96); MONOCYTES # (AUTO) 0.6 K/uL (0.1-1.30); MONOCYTES % (AUTO) 5.3 % (2.0-12.0); NEUTROPHILS # (AUTO) 9.4 K/uL (1.8-8.9); NEUTROPHILS % (AUTO) 84.1 % (43.0-81.0); PLATELET COUNT (AUTO) 139 K/uL (150-450); RED BLOOD CELL COUNT(AUTO) 3.82 MIL/uL (4.5-6.0); RED CELL DISTRIBUTION WIDTH 19.6 % (11.5-15.0); WHITE BLOOD COUNT (AUTO) 11.2 K/uL (4.3-11.0)
[2024-04-22 07:35] LABS: BILIRUBIN,TOTAL 0.6 mg/dL (0.2-1.0); CREATININE 0.9 mg/dL (0.6-1.3); MAGNESIUM 2.5 mg/dL (1.8-2.4); PHOSPHORUS 1.8 mg/dL (2.5-4.9); POTASSIUM 3.7 mmol/L (3.5-5.1); TOTAL PROTEIN, SERUM 5.7 g/dL (6.4-8.2)
[2024-04-22 07:42] LABS: ALBUMIN 1.4 g/dL (3.4-5.0)
[2024-04-22 10:02] LABS: ANISOCYTOSIS 1+; BAND % (MANUAL) 3 % (0.0-5.0); LYMPHOCYTES % (MANUAL) 10 % (16-48); MONOCYTES % (MANUAL) 1 % (0-11.0); NEUTROPHILS % (MANUAL) 86 (42-76); PLATELET ESTIMATE DECREASED
[2024-04-22] MEDS: DIGOXIN INJ 0.5 MG/2 ML AMPUL IV SCH (14:06)
[2024-04-22] MEDS: D5W IV SCH (17:17)
[2024-04-22] MEDS: SODIUM PHOSPHATE IV SCH (17:17)
[2024-04-23] VITALS (7 sets, daily range): BP systolic 90–109; BP diastolic 60–70; TEMP 97.7–98.2; O2SAT 98–100
[2024-04-23 06:31] LABS: BILIRUBIN,TOTAL 0.5 mg/dL (0.2-1.0); CALCIUM, SERUM 7.7 mg/dL (8.5-10.1); CREATININE 0.8 mg/dL (0.6-1.3); MAGNESIUM 2.1 mg/dL (1.8-2.4); PHOSPHORUS 2.2 mg/dL (2.5-4.9); POTASSIUM 3.3 mmol/L (3.5-5.1); TOTAL PROTEIN, SERUM 5.3 g/dL (6.4-8.2)
[2024-04-23 06:35] LABS: ALBUMIN 1.4 g/dL (3.4-5.0)
[2024-04-23 06:36] LABS: BASOPHILS % (AUTO) 0.4 % (0.0-2.0); EOSINOPHILS # (AUTO) 0.2 K/uL (0.0-0.7); EOSINOPHILS % (AUTO) 2.8 % (0.0-6.0); HEMATOCRIT 33 % (39-51); HEMOGLOBIN 10.8 g/dL (13.5-17.5); LYMPHOCYTES # (AUTO) 0.9 K/uL (0.8-4.8); LYMPHOCYTES % (AUTO) 13.8 % (20.0-44.0); MEAN CORPUSCULAR HEMOGLOBIN 29 PG (26.0-33.0); MEAN CORPUSCULAR HGB CONC 33 g/dl (31.0-36.0); MEAN CORPUSCULAR VOLUME 88 fL (80-96); MONOCYTES # (AUTO) 0.4 K/uL (0.1-1.30); MONOCYTES % (AUTO) 5.9 % (2.0-12.0); NEUTROPHILS # (AUTO) 5.3 K/uL (1.8-8.9); NEUTROPHILS % (AUTO) 77.1 % (43.0-81.0); PLATELET COUNT (AUTO) 142 K/uL (150-450); RED CELL DISTRIBUTION WIDTH 19.7 % (11.5-15.0); WHITE BLOOD COUNT (AUTO) 6.8 K/uL (4.3-11.0)
[2024-04-23 09:08] LABS: *SPE A/G RATIO 0.6 (0.7-1.7); *SPE ALPHA-1-GLOBULIN 0.4 g/dL (0.0-0.4); *SPE ALPHA-2-GLOBULIN 0.8 g/dL (0.4-1.0); *SPE GLOBULIN, TOTAL 3.3 g/dL (2.2-3.9); *SPE M-SPIKE Not Observed g/dL (Not Observed); *SPE PROTEIN TOTAL 5.3 g/dL (6.0-8.5)
[2024-04-23] MEDS: IV D5W 1,000 ML IV SCH (09:53)
[2024-04-23] MEDS: POTASSIUM PHOSPHATE MM 5 MMOL in IV NS 0.9% 100 ML IV SCH (09:56)
[2024-04-23] MEDS: MEROPENEM 1 G in IV NS 0.9% 100 ML IV SCH (11:44)
[2024-04-23] MEDS ORDERED: VANCOMYCIN FOR RECTAL ENEMA 500 MG RC SCH (13:00)
[2024-04-23] MEDS: VANCOMYCIN HCL 125 MG/2.5 ML ORAL.SUSP PO SCH (13:32)
[2024-04-23] MEDS: Sodium Phosphate 15 MMOL in IV NS 0.9% 245 ML IV ONE (16:42)
[2024-04-24] VITALS (7 sets, daily range): BP systolic 92–114; BP diastolic 64–80; TEMP 97.3–97.9; O2SAT 95–99
[2024-04-24 06:34] LABS: BASOPHILS % (AUTO) 0.4 % (0.0-2.0); EOSINOPHILS # (AUTO) 0.1 K/uL (0.0-0.7); EOSINOPHILS % (AUTO) 1.9 % (0.0-6.0); HEMATOCRIT 32 % (39-51); HEMOGLOBIN 10.1 g/dL (13.5-17.5); LYMPHOCYTES % (AUTO) 16.8 % (20.0-44.0); MEAN CORPUSCULAR HEMOGLOBIN 28 PG (26.0-33.0); MEAN CORPUSCULAR HGB CONC 32 g/dl (31.0-36.0); MEAN CORPUSCULAR VOLUME 88 fL (80-96); MONOCYTES # (AUTO) 0.4 K/uL (0.1-1.30); MONOCYTES % (AUTO) 6.7 % (2.0-12.0); NEUTROPHILS # (AUTO) 4.6 K/uL (1.8-8.9); NEUTROPHILS % (AUTO) 74.2 % (43.0-81.0); PLATELET COUNT (AUTO) 145 K/uL (150-450); RED BLOOD CELL COUNT(AUTO) 3.63 MIL/uL (4.5-6.0); RED CELL DISTRIBUTION WIDTH 18.9 % (11.5-15.0); WHITE BLOOD COUNT (AUTO) 6.2 K/uL (4.3-11.0)
[2024-04-24 07:08] LABS: BILIRUBIN,TOTAL 0.5 mg/dL (0.2-1.0); CALCIUM, SERUM 7.8 mg/dL (8.5-10.1); CREATININE 0.8 mg/dL (0.6-1.3); POTASSIUM 3.4 mmol/L (3.5-5.1); TOTAL PROTEIN, SERUM 5.3 g/dL (6.4-8.2)
[2024-04-24 08:24] LABS: ALBUMIN 1.4 g/dL (3.4-5.0)
[2024-04-24] MEDS: FREE WATER VIA TUBE FEEDING GT SCH (11:34)
[2024-04-24] MEDS: POTASSIUM CL. PREMIX PERIPHER. 50 ML IV SCH (11:34)
[2024-04-24] MEDS: IV D5W 1,000 ML IV PRN (11:40)
[2024-04-24 12:01] LABS: THYROID STIMULATING HORMONE 0.84 uIU/mL (0.358-3.74)
[2024-04-24] MEDS: GLUCERNA 1.2 1,000 ML BOTTLE NG PRN (16:06)
[2024-04-24] MEDS ORDERED: IV NS 0.9% 250 ML IV ONE (17:33)
[2024-04-24] MEDS ORDERED: IOHEXOL-300 100 ML VIAL IV ONE (17:33)
[2024-04-25] VITALS (7 sets, daily range): BP systolic 101–133; BP diastolic 60–89; TEMP 98.1–98.4; O2SAT 99–100
[2024-04-25 06:37] LABS: BASOPHILS % (AUTO) 0.3 % (0.0-2.0); EOSINOPHILS # (AUTO) 0.1 K/uL (0.0-0.7); EOSINOPHILS % (AUTO) 1.3 % (0.0-6.0); HEMATOCRIT 31 % (39-51); LYMPHOCYTES # (AUTO) 1.1 K/uL (0.8-4.8); LYMPHOCYTES % (AUTO) 16.2 % (20.0-44.0); MEAN CORPUSCULAR HEMOGLOBIN 28 PG (26.0-33.0); MEAN CORPUSCULAR HGB CONC 32 g/dl (31.0-36.0); MEAN CORPUSCULAR VOLUME 87 fL (80-96); MONOCYTES # (AUTO) 0.4 K/uL (0.1-1.30); NEUTROPHILS # (AUTO) 5.1 K/uL (1.8-8.9); NEUTROPHILS % (AUTO) 76.2 % (43.0-81.0); PLATELET COUNT (AUTO) 138 K/uL (150-450); RED BLOOD CELL COUNT(AUTO) 3.59 MIL/uL (4.5-6.0); RED CELL DISTRIBUTION WIDTH 18.6 % (11.5-15.0); WHITE BLOOD COUNT (AUTO) 6.6 K/uL (4.3-11.0)
[2024-04-25 07:20] LABS: CALCIUM, SERUM 7.7 mg/dL (8.5-10.1); CREATININE 0.7 mg/dL (0.6-1.3); PHOSPHORUS 2.2 mg/dL (2.5-4.9); POTASSIUM 3.3 mmol/L (3.5-5.1)
[2024-04-25 08:07] LABS: FOLIC ACID 10.5 ng/mL (>3.0)
[2024-04-25] MEDS: PANTOPRAZOLE 40 MG/PACK PACK NG SCH (09:17)
[2024-04-25] MEDS: POTASSIUM CL. PREMIX PERIPHER. 50 ML IV SCH (09:53)
[2024-04-25] MEDS ORDERED: PHARMACY TO CHANGE PO MEDS TO GT/NG XX PRN (14:30)
[2024-04-25] MEDS ORDERED: NA PHOS,M-B/NA PHOS,DI-BA 1 EA ENEMA RC PRN (14:30)
[2024-04-25] MEDS: NEUTRA PHOS 1 POWD.PACKET NG ONE (15:57)
[2024-04-25] MEDS: MULTIVITAMINS,THERAGRAN 1 UDTAB TABLET GT SCH (15:57)
[2024-04-25] MEDS: OXCARBAZEPINE 150 MG TABLET GT SCH (16:26)
[2024-04-25] MEDS: OLANZAPINE 5 MG TABLET GT SCH (16:38)
[2024-04-25] MEDS: VANCOMYCIN HCL 125 MG/2.5 ML ORAL.SUSP GT SCH (17:09)
[2024-04-25] MEDS: ATORVASTATIN 40 MG TABLET GT SCH (21:02)
[2024-04-25] MEDS: TAMSULOSIN 0.4 MG CAP.SR.24H GT SCH (21:02)
[2024-04-25] MEDS: OLANZAPINE 10 MG TABLET GT SCH (21:03)
[2024-04-26] VITALS: BP 133/76; TEMP 98.2; O2SAT 100
[2024-04-26 04:30] VITALS: BP 137/79; TEMP 98.4; O2SAT 100
[2024-04-26 06:54] LABS: BASOPHILS % (AUTO) 0.3 % (0.0-2.0); EOSINOPHILS # (AUTO) 0.1 K/uL (0.0-0.7); EOSINOPHILS % (AUTO) 1.3 % (0.0-6.0); HEMATOCRIT 32 % (39-51); HEMOGLOBIN 10.4 g/dL (13.5-17.5); LYMPHOCYTES # (AUTO) 1.1 K/uL (0.8-4.8); LYMPHOCYTES % (AUTO) 16.9 % (20.0-44.0); MEAN CORPUSCULAR HEMOGLOBIN 29 PG (26.0-33.0); MEAN CORPUSCULAR HGB CONC 33 g/dl (31.0-36.0); MEAN CORPUSCULAR VOLUME 87 fL (80-96); MONOCYTES # (AUTO) 0.3 K/uL (0.1-1.30); MONOCYTES % (AUTO) 4.5 % (2.0-12.0); NEUTROPHILS # (AUTO) 5.1 K/uL (1.8-8.9); PLATELET COUNT (AUTO) 156 K/uL (150-450); RED BLOOD CELL COUNT(AUTO) 3.63 MIL/uL (4.5-6.0); RED CELL DISTRIBUTION WIDTH 18.9 % (11.5-15.0); WHITE BLOOD COUNT (AUTO) 6.6 K/uL (4.3-11.0)
[2024-04-26 07:41] LABS: CALCIUM, SERUM 7.5 mg/dL (8.5-10.1); CREATININE 0.6 mg/dL (0.6-1.3); PHOSPHORUS 2.7 mg/dL (2.5-4.9); POTASSIUM 3.4 mmol/L (3.5-5.1)
[2024-04-26 08:00] VITALS: BP 107/77; TEMP 98.4; O2SAT 100
[2024-04-26] MEDS: CHOLECALCIFEROL 1,000 UNIT TABLET (VIT D3) GT SCH (08:19)
[2024-04-26] MEDS: FOLIC ACID 1 MG TABLET GT SCH (08:20)
[2024-04-26] MEDS: CYANOCOBALAMIN 500 MCG TABLET GT SCH (08:20)
[2024-04-26] MEDS: POTASSIUM CHLORIDE 20 MEQ POWDER PACKET NG SCH (10:39)
[2024-04-26 14:39] VITALS: O2SAT 100
[2024-04-26 20:25] VITALS: BP 128/77; TEMP 99; O2SAT 98
[2024-04-27] VITALS (7 sets, daily range): BP systolic 96–132; BP diastolic 61–91; TEMP 98–98.8; O2SAT 96–100
[2024-04-27 06:40] LABS: BASOPHILS % (AUTO) 0.3 % (0.0-2.0); EOSINOPHILS # (AUTO) 0.1 K/uL (0.0-0.7); EOSINOPHILS % (AUTO) 1.4 % (0.0-6.0); HEMATOCRIT 32 % (39-51); HEMOGLOBIN 10.4 g/dL (13.5-17.5); LYMPHOCYTES # (AUTO) 1.3 K/uL (0.8-4.8); LYMPHOCYTES % (AUTO) 18.8 % (20.0-44.0); MEAN CORPUSCULAR HEMOGLOBIN 28 PG (26.0-33.0); MEAN CORPUSCULAR HGB CONC 32 g/dl (31.0-36.0); MEAN CORPUSCULAR VOLUME 86 fL (80-96); MONOCYTES # (AUTO) 0.3 K/uL (0.1-1.30); MONOCYTES % (AUTO) 4.2 % (2.0-12.0); NEUTROPHILS # (AUTO) 5.2 K/uL (1.8-8.9); NEUTROPHILS % (AUTO) 75.3 % (43.0-81.0); PLATELET COUNT (AUTO) 161 K/uL (150-450); RED BLOOD CELL COUNT(AUTO) 3.73 MIL/uL (4.5-6.0); RED CELL DISTRIBUTION WIDTH 18.8 % (11.5-15.0)
[2024-04-27 06:47] LABS: CALCIUM, SERUM 7.9 mg/dL (8.5-10.1); CREATININE 0.7 mg/dL (0.6-1.3); POTASSIUM 3.9 mmol/L (3.5-5.1)
[2024-04-28] VITALS (7 sets, daily range): BP systolic 103–133; BP diastolic 50–69; TEMP 97.9–98.4; O2SAT 96–100
[2024-04-28 11:16] LABS: BASOPHILS % (AUTO) 0.4 % (0.0-2.0); EOSINOPHILS # (AUTO) 0.1 K/uL (0.0-0.7); EOSINOPHILS % (AUTO) 1.1 % (0.0-6.0); HEMATOCRIT 30 % (39-51); HEMOGLOBIN 9.5 g/dL (13.5-17.5); LYMPHOCYTES # (AUTO) 1.2 K/uL (0.8-4.8); LYMPHOCYTES % (AUTO) 16.5 % (20.0-44.0); MEAN CORPUSCULAR HEMOGLOBIN 28 PG (26.0-33.0); MEAN CORPUSCULAR HGB CONC 32 g/dl (31.0-36.0); MEAN CORPUSCULAR VOLUME 87 fL (80-96); MONOCYTES # (AUTO) 0.3 K/uL (0.1-1.30); MONOCYTES % (AUTO) 3.9 % (2.0-12.0); NEUTROPHILS # (AUTO) 5.5 K/uL (1.8-8.9); NEUTROPHILS % (AUTO) 78.1 % (43.0-81.0); PLATELET COUNT (AUTO) 159 K/uL (150-450); RED BLOOD CELL COUNT(AUTO) 3.44 MIL/uL (4.5-6.0); RED CELL DISTRIBUTION WIDTH 18.8 % (11.5-15.0)
[2024-04-28 11:33] LABS: CALCIUM, SERUM 7.7 mg/dL (8.5-10.1); CREATININE 0.5 mg/dL (0.6-1.3); POTASSIUM 3.9 mmol/L (3.5-5.1)
[2024-04-28] MEDS ORDERED: RIVAROXABAN 10 MG TABLET PO SCH (18:00)
[2024-04-28] MEDS: RIVAROXABAN 10 MG TABLET PO SCH (20:36)
[2024-04-29] VITALS: BP 114/66; TEMP 97.9; O2SAT 94
[2024-04-29 04:00] VITALS: BP 139/83; TEMP 99.1; O2SAT 98
[2024-04-29 06:48] LABS: BASOPHILS % (AUTO) 0.3 % (0.0-2.0); EOSINOPHILS # (AUTO) 0.1 K/uL (0.0-0.7); HEMATOCRIT 30 % (39-51); HEMOGLOBIN 9.7 g/dL (13.5-17.5); LYMPHOCYTES # (AUTO) 1.3 K/uL (0.8-4.8); LYMPHOCYTES % (AUTO) 17.4 % (20.0-44.0); MEAN CORPUSCULAR HEMOGLOBIN 28 PG (26.0-33.0); MEAN CORPUSCULAR HGB CONC 32 g/dl (31.0-36.0); MEAN CORPUSCULAR VOLUME 86 fL (80-96); MONOCYTES # (AUTO) 0.3 K/uL (0.1-1.30); MONOCYTES % (AUTO) 3.5 % (2.0-12.0); NEUTROPHILS # (AUTO) 5.7 K/uL (1.8-8.9); NEUTROPHILS % (AUTO) 77.8 % (43.0-81.0); PLATELET COUNT (AUTO) 192 K/uL (150-450); RED BLOOD CELL COUNT(AUTO) 3.49 MIL/uL (4.5-6.0); RED CELL DISTRIBUTION WIDTH 18.5 % (11.5-15.0); WHITE BLOOD COUNT (AUTO) 7.3 K/uL (4.3-11.0)
[2024-04-29 07:02] LABS: CALCIUM, SERUM 7.8 mg/dL (8.5-10.1); CREATININE 0.6 mg/dL (0.6-1.3); POTASSIUM 4.2 mmol/L (3.5-5.1)
[2024-04-29 09:07] VITALS: O2SAT 97
[2024-04-29 16:24] VITALS: BP 136/74; TEMP 97.5; O2SAT 97
[2024-04-29 20:00] VITALS: BP 105/75; TEMP 97.5; O2SAT 96
[2024-04-30 07:30] VITALS: BP 110/66; TEMP 98.2; O2SAT 97
[2024-04-30 07:39] LABS: BASOPHILS % (AUTO) 0.4 % (0.0-2.0); EOSINOPHILS # (AUTO) 0.1 K/uL (0.0-0.7); HEMATOCRIT 28 % (39-51); HEMOGLOBIN 9.2 g/dL (13.5-17.5); LYMPHOCYTES # (AUTO) 1.1 K/uL (0.8-4.8); LYMPHOCYTES % (AUTO) 19.5 % (20.0-44.0); MEAN CORPUSCULAR HEMOGLOBIN 28 PG (26.0-33.0); MEAN CORPUSCULAR HGB CONC 33 g/dl (31.0-36.0); MEAN CORPUSCULAR VOLUME 86 fL (80-96); MONOCYTES # (AUTO) 0.3 K/uL (0.1-1.30); MONOCYTES % (AUTO) 5.7 % (2.0-12.0); NEUTROPHILS # (AUTO) 4.1 K/uL (1.8-8.9); NEUTROPHILS % (AUTO) 73.4 % (43.0-81.0); PLATELET COUNT (AUTO) 201 K/uL (150-450); RED BLOOD CELL COUNT(AUTO) 3.27 MIL/uL (4.5-6.0); RED CELL DISTRIBUTION WIDTH 18.5 % (11.5-15.0); WHITE BLOOD COUNT (AUTO) 5.6 K/uL (4.3-11.0)
[2024-04-30 07:49] LABS: CREATININE 0.6 mg/dL (0.6-1.3); POTASSIUM 3.8 mmol/L (3.5-5.1)
[2024-04-30] MEDS: THERAHONEY GEL 1.5 OZ TUBE TP SCH (12:28)
[2024-04-30 16:00] VITALS: BP 105/75; TEMP 97.7; O2SAT 98
[2024-04-30 20:00] VITALS: BP 118/71; TEMP 98.2; O2SAT 93
[2024-05-01 07:00] VITALS: BP 132/81; TEMP 98.5; O2SAT 100
[2024-05-01 07:02] LABS: BASOPHILS % (AUTO) 0.3 % (0.0-2.0); EOSINOPHILS # (AUTO) 0.1 K/uL (0.0-0.7); HEMATOCRIT 33 % (39-51); HEMOGLOBIN 10.4 g/dL (13.5-17.5); LYMPHOCYTES # (AUTO) 1.1 K/uL (0.8-4.8); LYMPHOCYTES % (AUTO) 13.5 % (20.0-44.0); MEAN CORPUSCULAR HEMOGLOBIN 27 PG (26.0-33.0); MEAN CORPUSCULAR HGB CONC 32 g/dl (31.0-36.0); MEAN CORPUSCULAR VOLUME 85 fL (80-96); MONOCYTES # (AUTO) 0.5 K/uL (0.1-1.30); MONOCYTES % (AUTO) 5.5 % (2.0-12.0); NEUTROPHILS # (AUTO) 6.6 K/uL (1.8-8.9); NEUTROPHILS % (AUTO) 79.7 % (43.0-81.0); PLATELET COUNT (AUTO) 251 K/uL (150-450); RED CELL DISTRIBUTION WIDTH 18.8 % (11.5-15.0); WHITE BLOOD COUNT (AUTO) 8.3 K/uL (4.3-11.0)
[2024-05-01 07:17] LABS: CALCIUM, SERUM 8.5 mg/dL (8.5-10.1); CREATININE 0.7 mg/dL (0.6-1.3)
[2024-05-01 16:00] VITALS: BP 113/64; TEMP 98.6; O2SAT 94
[2024-05-01 20:00] VITALS: BP 93/62; TEMP 101.7; O2SAT 98
[2024-05-01] MEDS: ACETAMINOPHEN 325 MG TABLET PO PRN (20:33)
[2024-05-02 07:31] LABS: BASOPHILS % (AUTO) 0.1 % (0.0-2.0); HEMATOCRIT 29 % (39-51); HEMOGLOBIN 9.5 g/dL (13.5-17.5); MEAN CORPUSCULAR HEMOGLOBIN 28 PG (26.0-33.0); MEAN CORPUSCULAR HGB CONC 33 g/dl (31.0-36.0); MEAN CORPUSCULAR VOLUME 85 fL (80-96); MONOCYTES # (AUTO) 0.6 K/uL (0.1-1.30); MONOCYTES % (AUTO) 4.2 % (2.0-12.0); NEUTROPHILS # (AUTO) 12.4 K/uL (1.8-8.9); NEUTROPHILS % (AUTO) 88.7 % (43.0-81.0); PLATELET COUNT (AUTO) 283 K/uL (150-450); RED BLOOD CELL COUNT(AUTO) 3.39 MIL/uL (4.5-6.0); RED CELL DISTRIBUTION WIDTH 18.6 % (11.5-15.0)
[2024-05-02 08:00] VITALS: BP 105/65; TEMP 98.3; O2SAT 91
[2024-05-02 08:07] LABS: CALCIUM, SERUM 7.8 mg/dL (8.5-10.1); CREATININE 0.9 mg/dL (0.6-1.3); MAGNESIUM 1.8 mg/dL (1.8-2.4); PHOSPHORUS 3.6 mg/dL (2.5-4.9); POTASSIUM 4.1 mmol/L (3.5-5.1)
[2024-05-02 09:01] LABS: IRON, SERUM 10 ug/dl (50-175); TOTAL IRON BINDING CAPACITY 141 ug/dl (250-450)
[2024-05-02 09:17] LABS: FERRITIN 362 ng/mL (8-388)
[2024-05-02] MEDS: MEROPENEM 1 G in IV NS 0.9% 100 ML IV SCH (09:56)
[2024-05-02] MEDS: VANCOMYCIN 1 GM in IV D5W 250ml IV ONE ×2 (10:43→11:56)
[2024-05-02] MEDS: LIDOCAINE 1% INJ 50 ML MDV IJ ONE (15:00)
[2024-05-02 16:00] VITALS: BP 106/61; TEMP 99; O2SAT 97
[2024-05-02 20:00] VITALS: BP 120/54; TEMP 98.2; O2SAT 91
[2024-05-02 21:05] VITALS: O2SAT 94
[2024-05-02] MEDS: VANCOMYCIN HCL 1.25 GM in IV D5W 250 ML IV SCH (22:25)
[2024-05-03 08:00] VITALS: BP 136/101; TEMP 98.6; O2SAT 98
[2024-05-03 09:00] VITALS: O2SAT 96
[2024-05-03 12:48] LABS: ALBUMIN 1.5 g/dL (3.4-5.0); BILIRUBIN,TOTAL 1.1 mg/dL (0.2-1.0); CREATININE 0.7 mg/dL (0.6-1.3); MAGNESIUM 1.9 mg/dL (1.8-2.4); POTASSIUM 3.9 mmol/L (3.5-5.1)
[2024-05-03 13:10] LABS: BASOPHILS % (AUTO) 0.2 % (0.0-2.0); EOSINOPHILS % (AUTO) 0.2 % (0.0-6.0); HEMATOCRIT 28 % (39-51); LYMPHOCYTES # (AUTO) 0.9 K/uL (0.8-4.8); LYMPHOCYTES % (AUTO) 10.2 % (20.0-44.0); MEAN CORPUSCULAR HEMOGLOBIN 28 PG (26.0-33.0); MEAN CORPUSCULAR HGB CONC 33 g/dl (31.0-36.0); MEAN CORPUSCULAR VOLUME 84 fL (80-96); MONOCYTES # (AUTO) 0.3 K/uL (0.1-1.30); MONOCYTES % (AUTO) 3.2 % (2.0-12.0); NEUTROPHILS # (AUTO) 7.7 K/uL (1.8-8.9); NEUTROPHILS % (AUTO) 86.2 % (43.0-81.0); PLATELET COUNT (AUTO) 262 K/uL (150-450); RED BLOOD CELL COUNT(AUTO) 3.29 MIL/uL (4.5-6.0); RED CELL DISTRIBUTION WIDTH 18.2 % (11.5-15.0); WHITE BLOOD COUNT (AUTO) 8.9 K/uL (4.3-11.0)
[2024-05-03 13:58] VITALS: O2SAT 98
[2024-05-03 16:01] VITALS: BP 95/70; TEMP 99.2; O2SAT 99
[2024-05-03 20:00] VITALS: BP 100/57; TEMP 99.5; O2SAT 96
[2024-05-04 07:24] LABS: BASOPHILS % (AUTO) 0.1 % (0.0-2.0); EOSINOPHILS % (AUTO) 0.5 % (0.0-6.0); HEMATOCRIT 24 % (39-51); LYMPHOCYTES # (AUTO) 0.5 K/uL (0.8-4.8); LYMPHOCYTES % (AUTO) 5.7 % (20.0-44.0); MEAN CORPUSCULAR HEMOGLOBIN 28 PG (26.0-33.0); MEAN CORPUSCULAR HGB CONC 33 g/dl (31.0-36.0); MEAN CORPUSCULAR VOLUME 84 fL (80-96); MONOCYTES # (AUTO) 0.4 K/uL (0.1-1.30); MONOCYTES % (AUTO) 4.2 % (2.0-12.0); NEUTROPHILS # (AUTO) 8.5 K/uL (1.8-8.9); NEUTROPHILS % (AUTO) 89.5 % (43.0-81.0); PLATELET COUNT (AUTO) 251 K/uL (150-450); RED BLOOD CELL COUNT(AUTO) 2.89 MIL/uL (4.5-6.0); RED CELL DISTRIBUTION WIDTH 18.5 % (11.5-15.0); WHITE BLOOD COUNT (AUTO) 9.5 K/uL (4.3-11.0)
[2024-05-04 07:38] LABS: CALCIUM, SERUM 7.6 mg/dL (8.5-10.1); CREATININE 0.7 mg/dL (0.6-1.3); MAGNESIUM 1.8 mg/dL (1.8-2.4); PHOSPHORUS 2.7 mg/dL (2.5-4.9); POTASSIUM 3.7 mmol/L (3.5-5.1)
[2024-05-04 09:41] VITALS: BP 115/56; TEMP 97.4; O2SAT 97
[2024-05-04 10:24] VITALS: O2SAT 97
[2024-05-04 13:01] VITALS: O2SAT 99
[2024-05-04 16:00] VITALS: BP 139/121; TEMP 98.4; O2SAT 91
[2024-05-04 20:00] VITALS: BP 143/81; TEMP 99.9; O2SAT 95
[2024-05-05 00:33] VITALS: O2SAT 95
[2024-05-05 06:49] LABS: BASOPHILS % (AUTO) 0.1 % (0.0-2.0); EOSINOPHILS % (AUTO) 0.3 % (0.0-6.0); HEMATOCRIT 27 % (39-51); HEMOGLOBIN 8.5 g/dL (13.5-17.5); LYMPHOCYTES # (AUTO) 0.9 K/uL (0.8-4.8); MEAN CORPUSCULAR HEMOGLOBIN 27 PG (26.0-33.0); MEAN CORPUSCULAR HGB CONC 32 g/dl (31.0-36.0); MEAN CORPUSCULAR VOLUME 85 fL (80-96); MONOCYTES # (AUTO) 0.7 K/uL (0.1-1.30); MONOCYTES % (AUTO) 6.7 % (2.0-12.0); NEUTROPHILS # (AUTO) 8.3 K/uL (1.8-8.9); NEUTROPHILS % (AUTO) 83.9 % (43.0-81.0); PLATELET COUNT (AUTO) 272 K/uL (150-450); RED BLOOD CELL COUNT(AUTO) 3.11 MIL/uL (4.5-6.0); WHITE BLOOD COUNT (AUTO) 9.9 K/uL (4.3-11.0)
[2024-05-05 07:28] LABS: CALCIUM, SERUM 8.1 mg/dL (8.5-10.1); CREATININE 0.7 mg/dL (0.6-1.3); MAGNESIUM 2.1 mg/dL (1.8-2.4); PHOSPHORUS 2.9 mg/dL (2.5-4.9); POTASSIUM 4.1 mmol/L (3.5-5.1)
[2024-05-05 08:00] VITALS: BP 108/67; TEMP 98.6; O2SAT 92
[2024-05-05 12:17] VITALS: O2SAT 95
[2024-05-05] MEDS: VANCOMYCIN 1.5 GM in IV D5W 500 ML IV ONE (14:48)
[2024-05-05 16:14] VITALS: BP 109/70; TEMP 97.9; O2SAT 92
[2024-05-05 20:00] VITALS: BP 117/67; TEMP 99.1; O2SAT 98
[2024-05-05 23:38] VITALS: O2SAT 98
[2024-05-06] MEDS: VANCOMYCIN HCL 1.25 GM in IV D5W 250 ML IV SCH (03:24)
[2024-05-06 07:30] VITALS: BP 115/92; TEMP 100; O2SAT 93
[2024-05-06 07:36] LABS: BASOPHILS % (AUTO) 0.1 % (0.0-2.0); EOSINOPHILS % (AUTO) 0.6 % (0.0-6.0); HEMATOCRIT 24 % (39-51); HEMOGLOBIN 7.7 g/dL (13.5-17.5); LYMPHOCYTES # (AUTO) 0.8 K/uL (0.8-4.8); LYMPHOCYTES % (AUTO) 10.4 % (20.0-44.0); MEAN CORPUSCULAR HEMOGLOBIN 27 PG (26.0-33.0); MEAN CORPUSCULAR HGB CONC 32 g/dl (31.0-36.0); MEAN CORPUSCULAR VOLUME 84 fL (80-96); MONOCYTES # (AUTO) 0.6 K/uL (0.1-1.30); MONOCYTES % (AUTO) 8.7 % (2.0-12.0); NEUTROPHILS # (AUTO) 5.8 K/uL (1.8-8.9); NEUTROPHILS % (AUTO) 80.2 % (43.0-81.0); PLATELET COUNT (AUTO) 253 K/uL (150-450); RED BLOOD CELL COUNT(AUTO) 2.83 MIL/uL (4.5-6.0); RED CELL DISTRIBUTION WIDTH 18.6 % (11.5-15.0); WHITE BLOOD COUNT (AUTO) 7.3 K/uL (4.3-11.0)
[2024-05-06 07:55] LABS: CALCIUM, SERUM 7.8 mg/dL (8.5-10.1); CREATININE 0.6 mg/dL (0.6-1.3); PHOSPHORUS 2.7 mg/dL (2.5-4.9); POTASSIUM 3.8 mmol/L (3.5-5.1)
[2024-05-06] MEDS ORDERED: RIVAROXABAN 10 MG TABLET GT SCH (13:38)
[2024-05-06] MEDS: ACETAMINOPHEN 650 MG/20.3 ML UDC GT PRN (13:41)
[2024-05-06 16:00] VITALS: BP 105/66; TEMP 98.6; O2SAT 95
[2024-05-06 20:13] VITALS: BP 120/68; TEMP 99.1; O2SAT 97
[2024-05-06 20:20] VITALS: O2SAT 97
[2024-05-07 02:19] LABS: BASOPHILS % (AUTO) 0.4 % (0.0-2.0); EOSINOPHILS % (AUTO) 0.4 % (0.0-6.0); HEMATOCRIT 24 % (39-51); HEMOGLOBIN 7.5 g/dL (13.5-17.5); LYMPHOCYTES # (AUTO) 1.1 K/uL (0.8-4.8); LYMPHOCYTES % (AUTO) 13.3 % (20.0-44.0); MEAN CORPUSCULAR HEMOGLOBIN 27 PG (26.0-33.0); MEAN CORPUSCULAR HGB CONC 31 g/dl (31.0-36.0); MEAN CORPUSCULAR VOLUME 85 fL (80-96); MONOCYTES # (AUTO) 0.5 K/uL (0.1-1.30); MONOCYTES % (AUTO) 6.7 % (2.0-12.0); NEUTROPHILS # (AUTO) 6.3 K/uL (1.8-8.9); NEUTROPHILS % (AUTO) 79.2 % (43.0-81.0); PLATELET COUNT (AUTO) 248 K/uL (150-450); RED BLOOD CELL COUNT(AUTO) 2.82 MIL/uL (4.5-6.0); RED CELL DISTRIBUTION WIDTH 18.5 % (11.5-15.0)
[2024-05-07 02:28] LABS: BILIRUBIN,TOTAL 0.6 mg/dL (0.2-1.0); CREATININE 0.6 mg/dL (0.6-1.3); MAGNESIUM 2.1 mg/dL (1.8-2.4); TOTAL PROTEIN, SERUM 5.9 g/dL (6.4-8.2)
[2024-05-07 02:35] LABS: ALBUMIN 1.3 g/dL (3.4-5.0)
[2024-05-07 07:30] VITALS: BP 96/72; TEMP 97.9; O2SAT 91
[2024-05-07 08:22] VITALS: O2SAT 91
[2024-05-07] MEDS: FUROSEMIDE 20 MG/2 ML VIAL IV SCH (12:33)
[2024-05-07 16:00] VITALS: BP 122/69; TEMP 98.4; O2SAT 98
[2024-05-07 20:00] VITALS: BP 114/85; TEMP 99.2; O2SAT 98
[2024-05-07 20:15] VITALS: O2SAT 97
[2024-05-08 07:00] VITALS: BP 95/59; TEMP 99.3; O2SAT 99
[2024-05-08 07:24] LABS: BASOPHILS % (AUTO) 0.1 % (0.0-2.0); EOSINOPHILS % (AUTO) 0.2 % (0.0-6.0); HEMATOCRIT 25 % (39-51); HEMOGLOBIN 7.9 g/dL (13.5-17.5); LYMPHOCYTES # (AUTO) 1.4 K/uL (0.8-4.8); LYMPHOCYTES % (AUTO) 9.3 % (20.0-44.0); MEAN CORPUSCULAR HEMOGLOBIN 27 PG (26.0-33.0); MEAN CORPUSCULAR HGB CONC 32 g/dl (31.0-36.0); MEAN CORPUSCULAR VOLUME 84 fL (80-96); MONOCYTES # (AUTO) 0.8 K/uL (0.1-1.30); MONOCYTES % (AUTO) 5.4 % (2.0-12.0); NEUTROPHILS # (AUTO) 12.6 K/uL (1.8-8.9); PLATELET COUNT (AUTO) 302 K/uL (150-450); RED BLOOD CELL COUNT(AUTO) 2.94 MIL/uL (4.5-6.0); RED CELL DISTRIBUTION WIDTH 18.6 % (11.5-15.0); WHITE BLOOD COUNT (AUTO) 14.8 K/uL (4.3-11.0)
[2024-05-08 07:50] LABS: INR 1.2 (0.91-1.10); PROTHROMBIN TIME 12.6 SECS (9.2-11.1)
[2024-05-08 08:00] VITALS: BP 112/63; TEMP 98.2; O2SAT 99
[2024-05-08 08:06] LABS: CALCIUM, SERUM 8.8 mg/dL (8.5-10.1); CREATININE 0.6 mg/dL (0.6-1.3); MAGNESIUM 2.2 mg/dL (1.8-2.4); POTASSIUM 3.7 mmol/L (3.5-5.1)
[2024-05-08 08:16] VITALS: O2SAT 96
[2024-05-08 16:00] VITALS: BP 107/66; TEMP 97.9; O2SAT 97
[2024-05-08] MEDS: METOPROLOL TARTRATE 25 MG TABLET PO SCH (18:00)
[2024-05-08] MEDS ORDERED: ALBUTEROL FS 2.5 MG/3 ML VIAL.NEB ONE (19:38)
[2024-05-08 20:30] VITALS: BP 112/63; TEMP 98.2; O2SAT 99
[2024-05-08 22:12] VITALS: O2SAT 97
[2024-05-09] VITALS (8 sets, daily range): BP systolic 94–119; BP diastolic 54–79; TEMP 98.1–99.9; O2SAT 95–100
[2024-05-09 06:53] LABS: CALCIUM, SERUM 8.1 mg/dL (8.5-10.1); CREATININE 0.6 mg/dL (0.6-1.3); POTASSIUM 3.5 mmol/L (3.5-5.1)
[2024-05-09 09:26] LABS: BASOPHILS % (AUTO) 0.2 % (0.0-2.0); EOSINOPHILS # (AUTO) 0.1 K/uL (0.0-0.7); EOSINOPHILS % (AUTO) 0.6 % (0.0-6.0); HEMATOCRIT 25 % (39-51); HEMOGLOBIN 7.9 g/dL (13.5-17.5); LYMPHOCYTES # (AUTO) 1.2 K/uL (0.8-4.8); LYMPHOCYTES % (AUTO) 8.3 % (20.0-44.0); MEAN CORPUSCULAR HEMOGLOBIN 27 PG (26.0-33.0); MEAN CORPUSCULAR HGB CONC 32 g/dl (31.0-36.0); MEAN CORPUSCULAR VOLUME 85 fL (80-96); MONOCYTES # (AUTO) 0.6 K/uL (0.1-1.30); MONOCYTES % (AUTO) 3.9 % (2.0-12.0); NEUTROPHILS # (AUTO) 12.9 K/uL (1.8-8.9); PLATELET COUNT (AUTO) 320 K/uL (150-450); RED BLOOD CELL COUNT(AUTO) 2.91 MIL/uL (4.5-6.0); RED CELL DISTRIBUTION WIDTH 19.1 % (11.5-15.0); WHITE BLOOD COUNT (AUTO) 14.8 K/uL (4.3-11.0)
[2024-05-09] MEDS ORDERED: CEFEPIME 1 GM in IV D5W 50 ML IV SCH (16:00)
[2024-05-09] MEDS ORDERED: CEFEPIME 1 GM VIAL IM SCH ×2 (16:00→21:00)
[2024-05-09] MEDS: CEFEPIME 1 GM in IV D5W 50 ML IV SCH (16:30)
[2024-05-09] MEDS: RIVAROXABAN 10 MG TABLET PO SCH (16:42)
[2024-05-09] MEDS ORDERED: METOPROLOL TARTRATE 25 MG TABLET PO SCH (21:00)
[2024-05-09] MEDS: METOPROLOL TARTRATE 25 MG TABLET GT SCH (21:34)
[2024-05-10] VITALS: BP 100/54; TEMP 98.4; O2SAT 96
[2024-05-10 04:00] VITALS: BP 111/70; TEMP 98.2; O2SAT 96
[2024-05-10 06:49] LABS: BASOPHILS % (AUTO) 0.4 % (0.0-2.0); EOSINOPHILS # (AUTO) 0.1 K/uL (0.0-0.7); EOSINOPHILS % (AUTO) 1.3 % (0.0-6.0); HEMATOCRIT 25 % (39-51); HEMOGLOBIN 7.9 g/dL (13.5-17.5); LYMPHOCYTES # (AUTO) 1.4 K/uL (0.8-4.8); LYMPHOCYTES % (AUTO) 12.3 % (20.0-44.0); MEAN CORPUSCULAR HEMOGLOBIN 27 PG (26.0-33.0); MEAN CORPUSCULAR HGB CONC 32 g/dl (31.0-36.0); MEAN CORPUSCULAR VOLUME 85 fL (80-96); MONOCYTES # (AUTO) 0.5 K/uL (0.1-1.30); MONOCYTES % (AUTO) 4.1 % (2.0-12.0); NEUTROPHILS # (AUTO) 9.3 K/uL (1.8-8.9); NEUTROPHILS % (AUTO) 81.9 % (43.0-81.0); PLATELET COUNT (AUTO) 296 K/uL (150-450); RED BLOOD CELL COUNT(AUTO) 2.92 MIL/uL (4.5-6.0); RED CELL DISTRIBUTION WIDTH 18.4 % (11.5-15.0); WHITE BLOOD COUNT (AUTO) 11.3 K/uL (4.3-11.0)
[2024-05-10 07:13] LABS: CALCIUM, SERUM 8.2 mg/dL (8.5-10.1); CREATININE 0.6 mg/dL (0.6-1.3); POTASSIUM 3.6 mmol/L (3.5-5.1)
[2024-05-10 08:00] VITALS: BP 107/76; TEMP 97.5; TEMP 99.1; O2SAT 100; O2SAT 99
[2024-05-10 10:54] LABS: APPEARANCE,URINE CLEAR (CLEAR); BILIRUBIN,URINE NEGATIVE (NEGATIVE); BLOOD, URINE 3+ Ery/uL (NEGATIVE); COLOR,URINE YELLOW (YELLOW); KETONES,URINE NEGATIVE (NEGATIVE); LEUKOCYTE ESTERASE ,URINE NEGATIVE (NEGATIVE); NITRITE, URINE NEGATIVE (NEGATIVE); PROTEIN,URINE NEGATIVE (NEGATIVE); UGLUCOSE NEGATIVE (NEGATIVE); UROBILINOGEN,URINE 0.2 EU/dL (0.2)
[2024-05-10 11:16] LABS: ADD URINE CULTURE NO; BACTERIA,URINE Rare /HPF (None Seen); RBC,URINE TOO NUMEROUS TO COUN /HPF (0-2); SQUAMOUS EPITHELIAL CELL,UR None Seen /HPF (None Seen); WBC,URINE 0-2 /HPF (0-3)
[2024-05-10 11:21] VITALS: O2SAT 95
[2024-05-10 16:00] VITALS: BP 102/60; TEMP 98.6; O2SAT 98
[2024-05-10 20:00] VITALS: BP 93/67; TEMP 98.2; O2SAT 96
[2024-05-11 07:05] LABS: BASOPHILS % (AUTO) 0.3 % (0.0-2.0); EOSINOPHILS # (AUTO) 0.1 K/uL (0.0-0.7); EOSINOPHILS % (AUTO) 0.9 % (0.0-6.0); HEMATOCRIT 24 % (39-51); HEMOGLOBIN 7.8 g/dL (13.5-17.5); LYMPHOCYTES # (AUTO) 1.3 K/uL (0.8-4.8); LYMPHOCYTES % (AUTO) 11.4 % (20.0-44.0); MEAN CORPUSCULAR HEMOGLOBIN 28 PG (26.0-33.0); MEAN CORPUSCULAR HGB CONC 33 g/dl (31.0-36.0); MEAN CORPUSCULAR VOLUME 84 fL (80-96); MONOCYTES # (AUTO) 0.4 K/uL (0.1-1.30); MONOCYTES % (AUTO) 3.7 % (2.0-12.0); NEUTROPHILS # (AUTO) 9.4 K/uL (1.8-8.9); NEUTROPHILS % (AUTO) 83.7 % (43.0-81.0); PLATELET COUNT (AUTO) 319 K/uL (150-450); RED BLOOD CELL COUNT(AUTO) 2.83 MIL/uL (4.5-6.0); RED CELL DISTRIBUTION WIDTH 18.7 % (11.5-15.0); WHITE BLOOD COUNT (AUTO) 11.3 K/uL (4.3-11.0)
[2024-05-11 07:29] LABS: CALCIUM, SERUM 7.9 mg/dL (8.5-10.1); CARBON DIOXIDE 28 mmol/L (21-32); CHLORIDE 100 mmol/L (98-107); CREATININE 0.6 mg/dL (0.6-1.3); GLUCOSE 103 mg/dL (74-106); POTASSIUM 3.8 mmol/L (3.5-5.1); SODIUM SERUM 136 mmol/L (136-145)
[2024-05-11 07:43] LABS: UREA NITROGEN, BLOOD 16 mg/dL (7-18)
[2024-05-11 08:00] VITALS: BP 100/64; TEMP 99.7; O2SAT 96
[2024-05-11] MEDS: KETOCONAZOLE 2% CREAM 15 GM TUBE TP SCH (10:08)
[2024-05-11 11:32] LABS: BILIRUBIN,DIRECT 0.3 mg/dL (0.0-0.2); BILIRUBIN,TOTAL 0.6 mg/dL (0.2-1.0); TOTAL PROTEIN, SERUM 6.5 g/dL (6.4-8.2)
[2024-05-11 11:39] LABS: ALBUMIN 1.4 g/dL (3.4-5.0)
[2024-05-11 16:00] VITALS: BP 106/60; TEMP 99; O2SAT 94
[2024-05-11 20:00] VITALS: BP 103/63; TEMP 98.4; O2SAT 95
[2024-05-11 20:25] VITALS: BP 103/63; TEMP 98.4; O2SAT 95
[2024-05-12 01:11] VITALS: O2SAT 93
[2024-05-12 07:00] VITALS: BP 111/59; TEMP 98.1; O2SAT 94
[2024-05-12 07:40] LABS: BASOPHILS % (AUTO) 0.1 % (0.0-2.0); EOSINOPHILS # (AUTO) 0.1 K/uL (0.0-0.7); EOSINOPHILS % (AUTO) 0.7 % (0.0-6.0); HEMATOCRIT 25 % (39-51); HEMOGLOBIN 7.9 g/dL (13.5-17.5); LYMPHOCYTES # (AUTO) 1.1 K/uL (0.8-4.8); LYMPHOCYTES % (AUTO) 10.9 % (20.0-44.0); MEAN CORPUSCULAR HEMOGLOBIN 27 PG (26.0-33.0); MEAN CORPUSCULAR HGB CONC 32 g/dl (31.0-36.0); MEAN CORPUSCULAR VOLUME 85 fL (80-96); MONOCYTES # (AUTO) 0.4 K/uL (0.1-1.30); NEUTROPHILS # (AUTO) 8.9 K/uL (1.8-8.9); NEUTROPHILS % (AUTO) 84.3 % (43.0-81.0); PLATELET COUNT (AUTO) 371 K/uL (150-450); RED BLOOD CELL COUNT(AUTO) 2.96 MIL/uL (4.5-6.0); RED CELL DISTRIBUTION WIDTH 18.8 % (11.5-15.0); WHITE BLOOD COUNT (AUTO) 10.5 K/uL (4.3-11.0)
[2024-05-12 08:08] LABS: CALCIUM, SERUM 8.5 mg/dL (8.5-10.1); CREATININE 0.6 mg/dL (0.6-1.3); MAGNESIUM 2.4 mg/dL (1.8-2.4); PHOSPHORUS 3.1 mg/dL (2.5-4.9); POTASSIUM 4.1 mmol/L (3.5-5.1)
[2024-05-12 09:30] VITALS: O2SAT 94
[2024-05-12] MEDS ORDERED: PANT40SU2 NG (11:18)
[2024-05-12] MEDS ORDERED: METO25TA20 GT (11:18)
[2024-05-12] MEDS ORDERED: NUT.237L45 NG (11:18)
[2024-05-12] MEDS ORDERED: VANC125C11 GT (11:18)
[2024-05-12] MEDS ORDERED: RIVA10TA PO (11:18)
[2024-05-12] MEDS ORDERED: Tamsulosin GT (11:18)
[2024-05-12] MEDS ORDERED: Olanzapine GT ×2 (11:18)
[2024-05-12] MEDS ORDERED: Folic Acid GT (11:18)
[2024-05-12 16:00] VITALS: BP 105/67; TEMP 98.1; O2SAT 94
== END 2024-05-12 17:00 | DRG 871 ==
LOC: ER 11:48 → MED 16:09 → TELE 19:59 → UNDODISIN 04-22 10:09 → MED 04-29 10:20 → TELE 05-08 11:56 → MED 05-10 10:21
PROVIDERS: ATTEND Internal Medicine
PROC: 0DH63UZ Insertion of Feeding Device into Stomach, Percutaneous Approach (ICD-10-PCS; principal; 2024-05-08)
DX: A41.9 Sepsis, unspecified organism (principal); E43 Unspecified severe protein-calorie malnutrition; G93.41 Metabolic encephalopathy; N17.0 Acute kidney failure with tubular necrosis; G92.8 Other toxic encephalopathy; J69.0 Pneumonitis due to inhalation of food and vomit; J96.91 Respiratory failure, unspecified with hypoxia; D68.59 Other primary thrombophilia; A04.72 Enterocolitis due to Clostridium difficile, not specified as recurrent; L03.115 Cellulitis of right lower limb; E87.0 Hyperosmolality and hypernatremia; Z16.12 Extended spectrum beta lactamase (ESBL) resistance; L02.415 Cutaneous abscess of right lower limb; J44.0 Chronic obstructive pulmonary disease with (acute) lower respiratory infection; N39.0 Urinary tract infection, site not specified; Z16.24 Resistance to multiple antibiotics; I11.0 Hypertensive heart disease with heart failure; F02.80 Dementia in other diseases classified elsewhere, unspecified severity, without behavioral disturbance, psychotic disturbance, mood disturbance, and anxiety; G30.9 Alzheimer's disease, unspecified; D64.9 Anemia, unspecified; E11.9 Type 2 diabetes mellitus without complications; E78.5 Hyperlipidemia, unspecified; E88.09 Other disorders of plasma-protein metabolism, not elsewhere classified; I48.0 Paroxysmal atrial fibrillation; Z79.84 Long term (current) use of oral hypoglycemic drugs; E86.0 Dehydration; Z74.09 Other reduced mobility; L89.156 Pressure-induced deep tissue damage of sacral region; E87.6 Hypokalemia; I50.9 Heart failure, unspecified; K29.70 Gastritis, unspecified, without bleeding; M89.8X9 Other specified disorders of bone, unspecified site; R13.10 Dysphagia, unspecified; B96.20 Unspecified Escherichia coli [E. coli] as the cause of diseases classified elsewhere; M70.51 Other bursitis of knee, right knee; S80.01XA Contusion of right knee, initial encounter; X58.XXXA Exposure to other specified factors, initial encounter; Y93.9 Activity, unspecified; Y92.129 Unspecified place in nursing home as the place of occurrence of the external cause; Z68.31 Body mass index [BMI] 31.0-31.9, adult; I49.5 Sick sinus syndrome; E86.9 Volume depletion, unspecified; B35.3 Tinea pedis; Z79.01 Long term (current) use of anticoagulants
CPT/HCPCS: 31720; 36415; 36600; 43246; 70450-TC; 70551-TC; 71045-TC; 73701-TC; 76882; 80048-TC; 80053-TC; 80076-TC; 80162-TC; 80202-TC; 81001; 82550-TC; 82607-TC; 82728-TC; 82803-TC; 82962-TC; 83540-TC; 83605-TC; 83735-TC; 83921; 83970; 84100-TC; 84155; 84165; 84443-TC; 84484-TC; 85025-TC; 85045-TC; 85610-TC; 85730-TC; 87040-TC; 87086-TC; 92526; 92611-TC; 93307-TC; 94760-TC; 94761-TC; 94762-TC; 94799-TC; A4217; A4223; A6403; A9563; G0378; J0692; J1160; J1650; J1815; J1940; J2185; J2470; J2543; J3370; J3371; J3480; J3490; J7030; J7040; J7042; J7050; J7060; J7070; Q9967